=== PATIENT | female | born 1960 | race Caucasian/White ===

== ENCOUNTER 2023-07-17 12:27 | Observation (INO) | payer OTHER, SELFPAY ==
--- NOTE | ~2023-07-17 | CT_ITS ---
EXAMINATION: CT abdomen pelvis w con DATE: 07/17/2023 15:32 INDICATION: LUQ and LLQ abd pain TECHNIQUE: Computed tomography (CT) of the abdomen and pelvis was performed with 100 mL Omnipaque-350 intravenous contrast. Automated exposure control and iterative reconstruction technique were employe d. The dose-length product was 1176.67 mGy-cm. COMPARISON: None. FINDINGS: Lower thorax: Minimal basilar scarring/atelectasis and rounded atelectasis in the right lower lobe Liver: Normal. Biliary/Gallbladder: Gallbladder is normal. No bile duct dilation. Pancreas: No mass or duct dilation. Spleen: Normal. Adrenals:No mass. Kidneys: No suspicious mass, obstructing stone, or hydronephrosis. Subcentimeter hypodensities that l ikely represent cysts. GI tract: No small or large bowel dilation. Short segment mid sigmoid wall thickening with an inflame d diverticulum. Tiny foci of extracolonic gas in the adjacent pericolic fat. Somewhat triangular shap ed 1.5 cm fluid collection in the adjacent mesentery with the suggestion of early surrounding rim enh ancement. Normal appendix. Mesentery/Peritoneum: No ascites, mass, or free air. Retroperitoneum: No mass. Pelvis: Mild bladder wall edema. IUD, in good position. Soft Tissues: Soft tissues and body wall unremarkable. Bones: No acute osseous finding. IMPRESSION: Acute mid sigmoid diverticulitis with findings concerning for contained microperforation and a develo ping 1.5 cm pericolonic abscess. IUD, in good position, but unexpected for a patient of this age. Reviewed, dictated and finalized at location K. IMPRESSION: Acute mid sigmoid diverticulitis with findings concerning for contained micrope rforation and a developing 1.5 cm pericolonic abscess. IUD, in good position, but unexpected for a patient of this age.
[2023-07-17 12:42] VITALS: BP 181/62; PULSE 96; RESP 20; TEMP 36.6; O2SAT 99
[2023-07-17 13:26] LABS: Basophils Percent Auto 0.9 % (0.2-1.2); Eosinophils Absolute Auto 0.1 K/mm3 (0-0.3); Eosinophils Percent Auto 2.8 % (0-4.4); Hematocrit 41.9 % (37.0-47.0); Hemoglobin 12.9 g/dL (12.0-15.0); Immature Granulocyte Absolute 0.01 K/mm3 (0.00-0.031); Immature Granulocyte Percent A 0.2 % (0-0.5); Lymphocytes Percent Auto 30.5 % (18.3-44.2); Mean Corpuscular HGB Conc 30.8 g/dl (32-36); Mean Corpuscular Hemoglobin 25.4 pg (26-34); Mean Corpuscular Volume 82.6 fl (80-100); Mean Platelet Volume 10.8 fl (7.4-10.4); Monocytes Absolute Auto 0.5 K/mm3 (0.1-0.6); Monocytes Percent Auto 10.7 % (2.6-8.5); Neutrophils Absolute Auto 2.5 K/mm3 (1.3-6.7); Neutrophils Percent Auto 54.9 % (45.5-73.1); Platelet Count Result 247 k/mm3 (150-375); Red Blood Count 5.07 M/mm3 (4.2-5.4); Red Cell Distribution Width 13.7 % (11.5-14.5); White Blood Count 4.6 K/mm3 (4.5-10.0)
[2023-07-17 13:36] LABS: Alanine Aminotransferase 16 U/L (6-35); Albumin Level 4.2 g/dL (3.5-5.1); Alkaline Phosphatase 71 U/L (38-126); Anion Gap 5 mmol/L (8-16); Aspartate Amino Transferase 21 U/L (14-36); Bilirubin,Total 0.5 mg/dL (0.2-1.3); Blood Urea Nitrogen 14 mg/dL (7-17); Calcium 9.9 mg/dL (8.4-10.2); Carbon Dioxide 24 mmol/L (22-30); Chloride 108 mmol/L (98-107); Estimated CRCL calculation 88 ml/min; Estimated Glomerular Filt Rate > 60; Glucose 99 mg/dL (65-110); Lipase 134 U/L (23-300); Potassium 4.1 mmol/L (3.4-5.0); Sodium 137 mmol/L (137-145)
--- NOTE | 2023-07-17 14:46 | ED.ABDPAIN ---
HPI - Abdominal Pain General Chief Complaint: Abdominal Pain <Olga Eller PA-C - Last Filed: 07/17/23 17:19> Stated Complaint: ABD Pain <PATRICIA Tate Last Filed: 07/17/23 17:19> Time Seen by Provider: 07/17/23 14:39 <Olga Eller PA-C - Last Filed: 07/17/23 17:19> History of Present Illness HPI narrative: 63-year-old female with a reported history of diverticulitis and s/p tubal ligation in 1993 presents for evaluation for abdominal pain x5 days. Patient states that the onset of symptoms she had multiple episodes of watery diarrhea for 2 days. Her last bowel movement was 3 days ago which is abnormal for her. States since yesterday she has not been able to pass gas. Reports she is concerned that she has either constipated or has a bowel obstruction. She reports nausea, denies vomiting, melena or hematochezia, fever, chest pain or shortness of breath, dysuria or hematuria. Denies prior history of bowel obstruction. <Olga Eller PA-C - Last Filed: 07/17/23 17:19> Related Data Allergies/Adverse Reactions: Allergies Allergy/AdvReac Type Severity Reaction Status Date / Time No Known Allergies Allergy Verified 07/17/23 15:00 <Olga Eller PA-C - Last Filed: 07/17/23 17:19> Review of Systems Review of Systems: CONSTITUTIONAL: Denies fever, chills, or sweats. EYES: Denies visual changes, redness, or discharge. ENT: Denies rhinorrhea, congestion, sore throat, or otalgia. CARDIOVASCULAR: Denies chest pain, palpitations, or edema. RESPIRATORY: Denies cough or dyspnea. GASTROINTESTINAL: See HPI GENITOURINARY: Denies dysuria or hematuria. SKIN: Denies rash or itching. MUSCULOSKELETAL: Denies back pain, joint pain, or myalgia. NEUROLOGIC: Denies headache, numbness, or weakness. PSYCHIATRIC: Denies anxiety or depression. <PATRICIA Tate Last Filed: 07/17/23 17:19> Exam Narrative: GENERAL: Well-appearing, well-nourished, and in no acute distress. HEAD: Normocephalic, atraumatic. EYES: PERRLA and EOMI. ENT: Nares clear, no rhinorrhea or epistaxis. Mucous membranes moist. NECK: Supple. CHEST: Clear to auscultation. No respiratory distress. HEART: Regular rate and rhythm. No murmur heard. Normal peripheral pulses. ABDOMEN: Hypoactive bowel sounds. Abdomen soft with tenderness and guarding the left lower quadrant and left upper quadrant. No rebound or rigidity. Negative Alanis's and McBurney's. No CVA tenderness. EXTREMITIES: Normal range of motion. No edema. SKIN: Warm, dry, no rash. NEURO: No focal deficits. Alert and oriented x3 <Olga Eller PA-C - Last Filed: 07/17/23 17:19> Course BUDGET ENGINEER/PA Physician Supervision This visit was performed by both a physician and an APC. I performed all aspects of the MDM as documented. <Bandar Barajas MD - Last Filed: 07/17/23 18:22> Vital Signs Vital signs: Vital Signs Temperature 97.8 F 07/17/23 12:42 Pulse Rate 96 07/17/23 12:42 Respiratory Rate 20 07/17/23 12:42 Blood Pressure 181/62 H 07/17/23 12:42 Pulse Oximetry 99 07/17/23 12:42 Oxygen Delivery Room Air 07/17/23 12:42 Temperature 97.4 F L 07/17/23 18:05 Pulse Rate 84 07/17/23 18:05 Respiratory Rate 16 07/17/23 18:05 Blood Pressure 134/65 07/17/23 18:05 Pulse Oximetry 97 07/17/23 18:05 Oxygen Delivery Room Air 07/17/23 12:42 <Olga Eller PA-C - Last Filed: 07/17/23 17:19> Vital Signs Temperature 97.8 F 07/17/23 12:42 Pulse Rate 96 07/17/23 12:42 Respiratory Rate 20 07/17/23 12:42 Blood Pressure 181/62 H 07/17/23 12:42 Pulse Oximetry 99 07/17/23 12:42 Oxygen Delivery Room Air 07/17/23 12:42 Temperature 97.4 F L 07/17/23 18:05 Pulse Rate 84 07/17/23 18:05 Respiratory Rate 16 07/17/23 18:05 Blood Pressure 134/65 07/17/23 18:05 Pulse Oximetry 97 07/17/23 18:05 Oxygen Delivery Room Air 07/17/23 12:42 <Bandar Barajas MD
[2023-07-17] MEDS: SODIUM CHLORIDE 0.9% IV 1,000 ML 999 ML IV CONT (15:00)
[2023-07-17] MEDS: ONDANSETRON INJ 4 MG/2 ML VIAL IV PUSH ×2 (15:00→20:29)
[2023-07-17] MEDS: MORPHINE SULFATE (*CRX) 4 MG/ML INJ IV PUSH ×2 (15:00→20:29)
[2023-07-17 16:19] LABS: Lactic Acid Reflex 0.9 mmol/L (0.7-2.0)
[2023-07-17 16:43] LABS: Appearance Urine Clear (Clear); Bilirubin Urine Negative (Negative); Blood Urine Negative (Negative); Color Urine Yellow (Yellow); Glucose Urine UA Negative (Negative); Ketones Urine Negative (Negative); Leukocyte Esterase Ur Negative LEU/UL (Negative); Nitrate Urine Negative (Negative); Protein Urine Negative (Negative)
[2023-07-17 17:01] LABS: Add Urine Microscopic? NO; Specific Grav Ur 1.059 (1.001-1.035)
[2023-07-17 17:47] VITALS: BP 119/49; PULSE 78; RESP 16; TEMP 36.6; O2SAT 98
[2023-07-17] MEDS: PIPERACILLN/TAZ 3.375GM/NS50ML 3.375 GM/50 ML BAG IVPB ×2 (17:48→23:15)
[2023-07-17 18:05] VITALS: BP 134/65; PULSE 84; RESP 16; TEMP 36.3; O2SAT 97
--- NOTE | 2023-07-17 18:05 | PC.NURSE ---
This patient, Osiris Fontenot, was admitted to [facility] Surg Room 326-01. Patient/family oriented to hospital policies and general routines including ID bracelet, bed and alarms, visiting hours, pain management, procedures, bathroom and other care routines, personal items, smoking policy, room service/diet, and visiting hours. Information on how to activate the Rapid Response Team has been discussed. Patient/Family are encouraged to report perceived risks to care and to ask questions if they do not understand what they are told or what they should do.
[2023-07-17 18:35] VITALS: BMI 35.6
--- NOTE | 2023-07-17 19:30 | PM.IMHP ---
H&P: HPI History of Present Illness Date/Time: 07/17/23 19:30 Chief Complaint: Abdominal Pain, Diarrhea Narrative: 63 y/o F presents here with with lower abdominal pain and diarrhea with PMH of diverticulitis and surgical history of tubal ligation 1993. Patient presents here for evaluation of lower abdominal pain that is been ongoing for the past 5 days. Patient describes the abdominal pain as sharp, constant, non-radiating, and currently 0/10. At the onset of her abdominal pain she had watery stools for approximately 2 days, then did not have a bowel movement for the last 3 days. States this is abnormal for her, typically goes once daily. Reports that she was passing gas this morning, no longer passing gas this evening. Currently nauseated without vomiting. Endorsing urinary frequency without dysuria and abdominal bloating. Denies fever, chills, or body aches. No previous history of bowel obstructions, does have history of diverticulitis with collapsed episode in 2016. Continuing to have abdominal discomfort primarily on the left in the lower quadrant, now radiating somewhat upwards into the left upper quadrant. Initial VS at presentation: 97.8 ? F, HR 96, RR 20, 181/62, 99% on RA. ED workup showed: No leukocytosis or anemia, creatinine 0.7, no significant electrolyte derangements, and UA unremarkable. CT of the abdomen pelvis shows acute mid sigmoid diverticulitis. Review of Systems Review of Systems: All systems reviewed & are unremarkable except as noted in HPI and below [facility] Past Medical History Medical History (Updated 07/17/23 @ 23:23 by Lesly Doty APRN) Diverticulitis Diverticulosis Hypertension Family History Family History Mother Hypertension Social History Social History Smoking status: Former smoker Smoking end date: 05/03/13 Alcohol intake: never Substance use: never Do You Feel Safe in your Home?: Yes Lack of Transportation: No Lack of Food: Never True Current Housing: I Have Housing Concerned About Future Housing: No Difficulty Paying Gas/Electric Bills: No Difficulty Paying for Meds: No Currently Unemployed: No Education: Master's Degree or Higher Difficulty w/ Childcare or Family Care: No Spiritual care concerns: No Meds Home Medications and Allergies Home Medications Medication Instructions Recorded Confirmed Type lisinopril 20 mg tablet 20 mg PO DAILY 07/17/23 07/17/23 History Allergies Allergy/AdvReac Type Severity Reaction Status Date / Time No Known Allergies Allergy Verified 07/17/23 15:00 Vital Signs Vital Signs - 24 hr 07/17/23 12:42 07/17/23 17:47 07/17/23 18:41 Temperature 97.8 F 97.8 F Pulse Rate 96 78 Respiratory Rate 20 16 Blood Pressure 181/62 H 119/49 L Pulse Oximetry 99 98 Oxygen Delivery Room Air Room Air 07/17/23 18:05 Temperature 97.4 F L Pulse Rate 84 Respiratory Rate 16 Blood Pressure 134/65 Pulse Oximetry 97 Oxygen Delivery Exam Const: General: comfortable and no acute distress Other: , female, nontoxic appearance HENMT: Face/Nose/Sinus: Normal nares present Mouth: Yes moist mucous membranes Eyes: General: appearance normal, both eyes and all related structures Sclera: sclerae normal Pupils: Equal, round and reactive pupils present EOM: EOMs intact bilaterally Resp: Effort & Inspection: normal respiratory effort Auscultation: clear to auscultation bilaterally Cardio: Rate: regular rate Rhythm: regular rhythm Other: S1-S2 present without murmur, rub, ectopy GI: Other: diffusely tender on the L, more so in LLQ. BS normo to hypoactive throughout. Nondistended, soft. Skin: General skin exam: normal color and no rashes or lesions noted Wounds: no wounds Neuro: Speech: normal speech Motor exam (neuro): 5/5 motor strength present th
[2023-07-17 21:03] VITALS: BP 109/70; PULSE 80; RESP 18; TEMP 36.4; O2SAT 96
[2023-07-17] MEDS: LACTATED RINGERS 1,000 ML 100 ML IV CONT (22:51)
[2023-07-18 04:37] VITALS: BP 110/58; PULSE 61; RESP 18; TEMP 36.5; O2SAT 97
[2023-07-18] MEDS: PIPERACILLN/TAZ 3.375GM/NS50ML 3.375 GM/50 ML BAG IVPB ×4 (05:06→23:16)
--- NOTE | 2023-07-18 07:45 | PM.CNGS ---
Assessment and Plan Assessment and plan (1) Abscess of sigmoid colon due to diverticulitis: Code(s): K57.20 - Diverticulitis of large intestine with perforation and abscess without bleeding Status: Acute Assessment and Plan: exam benign, will advance to low fiber diet as tolerated, cont abx, cont serial exams, labs, encourage OOB History of Present Illness Consult details Consult date: 07/18/23 Reason for consult: abdominal pain Requesting physician: Chidi Mistry MD Narrative: The pt is a 63 y/o F presenting to the ED c/o lower abd pain over last 5-6 days. Pt reports intially c watery diarrhea now switched over to constipation. Pt reports pain is constant, sharp and localized to LLQ. Pt reports some mild nausea and poor appetite, but denies f/c, emesis. Pt reports similar episode in the past associated c diverticulitis. Review of Systems Review of Systems: All systems reviewed & are unremarkable except as noted in HPI and below PMFSH Past Medical History Medical History Diverticulitis Diverticulosis Hypertension Family History Family History Mother Hypertension Social History Social History Smoking status: Former smoker Smoking end date: 05/03/13 Alcohol intake: never Substance use: never Do You Feel Safe in your Home?: Yes Lack of Transportation: No Lack of Food: Never True Current Housing: I Have Housing Concerned About Future Housing: No Difficulty Paying Gas/Electric Bills: No Difficulty Paying for Meds: No Currently Unemployed: No Education: Master's Degree or Higher Difficulty w/ Childcare or Family Care: No Spiritual care concerns: No Meds Home Medications and Allergies Home Medications Medication Instructions Recorded Confirmed Type lisinopril 20 mg tablet 20 mg PO DAILY 07/17/23 07/17/23 History Allergies Allergy/AdvReac Type Severity Reaction Status Date / Time No Known Allergies Allergy Verified 07/17/23 15:00 Vital Signs Vital Signs - 24 hr 07/17/23 12:42 07/17/23 17:47 07/17/23 18:41 Temperature 36.6 C 36.6 C Pulse Rate 96 78 Respiratory Rate 20 16 Blood Pressure 181/62 H 119/49 L Pulse Oximetry 99 98 Oxygen Delivery Room Air Room Air 07/17/23 18:05 07/17/23 21:03 07/18/23 04:37 Temperature 36.3 C L 36.4 C L 36.5 C Pulse Rate 84 80 61 Respiratory Rate 16 18 18 Blood Pressure 134/65 109/70 110/58 L Pulse Oximetry 97 96 97 Oxygen Delivery Exam Const: General: cooperative, comfortable and no acute distress HENMT: Head: normal to inspection, normocephalic and atraumatic Eyes: General: appearance normal, both eyes and all related structures Neck: Neck: normal visual inspection, full ROM and no lymphadenopathy Resp: Auscultation: clear to auscultation bilaterally Cardio: Rate: regular rate Rhythm: regular rhythm GI: Inspection: normal to inspection and distended GI Palp: Yes abdominal tenderness, Yes Soft to palpation, Yes Tenderness to palpation present (GI), No Guarding due to palpation present (GI), No Rigid due to palpation and No Hernia present Skin: General skin exam: normal color and no rashes or lesions noted Neuro: General: patient oriented x3 and CN's II-XI intact bilaterally Extrem: General: normal to inspection and full ROM Psych: Appearance: grossly normal Results Labs 07/17/23 13:19 07/17/23 13:19 Labs: Abnormal lab results 07/17/23 07/17/23 Range/Units 13:19 16:33 MCH 25.4 L (26-34) pg MCHC 30.8 L (32-36) g/dl MPV 10.8 H (7.4-10.4) fl [place] % (Auto) 10.7 H (2.6-8.5) % Chloride 108 H (98-107) mmol/L Anion Gap 5 L (8-16) mmol/L Ur Specific [place] 1.059 H (1.001-1.035) Diabetes panel 07/17/23 Range/Units 13:19 Sodium 137 (137-145)
[2023-07-18] MEDS: lisinopriL 20 MG TABLET PO (08:18)
[2023-07-18] MEDS: PANTOPRAZOLE SODIUM IV 40 MG VIAL IV PUSH (08:18)
[2023-07-18] MEDS: LACTATED RINGERS 1,000 ML 100 ML IV CONT (08:18)
[2023-07-18 08:27] LABS: Hemoglobin 11.7 g/dL (12.0-15.0); Mean Corpuscular HGB Conc 30.8 g/dl (32-36); Mean Corpuscular Hemoglobin 26.1 pg (26-34); Mean Corpuscular Volume 84.8 fl (80-100); Mean Platelet Volume 10.7 fl (7.4-10.4); Platelet Count Result 227 k/mm3 (150-375); Red Blood Count 4.48 M/mm3 (4.2-5.4); Red Cell Distribution Width 13.8 % (11.5-14.5); White Blood Count 3.5 K/mm3 (4.5-10.0)
[2023-07-18 08:42] LABS: Anion Gap 4 mmol/L (8-16); Blood Urea Nitrogen 10 mg/dL (7-17); Calcium 9.4 mg/dL (8.4-10.2); Carbon Dioxide 27 mmol/L (22-30); Chloride 106 mmol/L (98-107); Estimated CRCL calculation 78 ml/min; Estimated Glomerular Filt Rate > 60; Glucose 123 mg/dL (65-110); Sodium 137 mmol/L (137-145)
--- NOTE | 2023-07-18 13:50 | PM.IMPN ---
Progress Note: A&P Assessment and Plan (1) Diverticulitis of large intestine with complication: Code(s): K57.32 - Diverticulitis of large intestine without perforation or abscess without bleeding Status: Acute Assessment and Plan: CT abd/pelvis acute mid sigmoid diverticulitis with findings concerning for contained microperforation and a developing 1.5 cm pericolonic abscess. IUD, in good position, but unexpected for a patient of this age. Started on Zosyn Q6H on 07/16 continue IV hydration, given 1 L bolus of NS in the ED. continue as 100 mL/hr of LR. Assess daily for discontinuation. General Surgery consulted serial abdominal exams tyl prn for fever or pain pain medication PRN antiemetics PRN Advance diet as tolerated (2) Hypertension: Code(s): I10 - Essential (primary) hypertension Status: Acute Assessment and Plan: chronic, currently 109/70 continue home medications: Lisinopril 20 mg p.o. daily monitor Subjective Date/time seen: 07/18/23 13:50 Interval history: Patient doing well today. She continues to have some lower abdominal discomfort and some mild nausea. She has still not had a bowel movement. States that her last normal bowel movement was 6 days ago. She did have some diarrhea intermittently between then. Discussed that we will hold off on stimulating her bowels for now until her symptoms improve. Will advanced diet as tolerated. Exam Narrative: GENERAL: Comfortable, no acute distress HENMT: moist mucous membranes EYES: EOM intact b/l NECK: no lymphadenopathy RESPIRATORY: clear to auscultation CARDIO: RRR GI: soft, Mild left lower quadrant tenderness, bowel sounds present SKIN: no rashes EXTREMITIES: no edema, redness or tenderness Objective Data Vital Signs Vital Signs: Vital Signs - 24 hr 07/17/23 17:47 07/17/23 18:41 07/17/23 18:05 Temperature 97.8 F 97.4 F L Pulse Rate 78 84 Respiratory Rate 16 16 Blood Pressure 119/49 L 134/65 Pulse Oximetry 98 97 Oxygen Delivery Room Air 07/17/23 21:03 07/18/23 04:37 07/18/23 08:00 Temperature 97.5 F L 97.7 F Pulse Rate 80 61 Respiratory Rate 18 18 Blood Pressure 109/70 110/58 L Pulse Oximetry 96 97 Oxygen Delivery Room Air Intake/Output Intake/Output: Intake & Output 03/14/24 03/15/24 03/16/24 03/17/24 23:59 23:59 23:59 23:59 Intake Total 1050 2225 Balance 1050 2225 Meds/Results Medications: Active Medications Generic Name Dose Route Start Last Admin Trade Name Freq PRN Reason Stop Dose Admin Acetaminophen 650 mg 07/17/23 21:49 Acetaminophen 325 Mg Tablet PO Q4H PRN Mild Pain (1-3) or Fever Piperacillin/Tazobactam/Dextrose 3.375 gm in 50 mls @ 100 mls/hr 07/18/23 00:00 07/18/23 11:59 Zosyn 3.375 Gm/Ns 50 Ml IVPB Infused Q6H SHAMIKA Infusion Lactated Ringer's 1,000 mls @ 100 mls/hr 07/17/23 21:45 07/18/23 08:18 Lr - Lactated Ringers Iv IV CONT 100 mls/hr .Q10H SHAMIKA Administration Lisinopril 20 mg 07/18/23 09:00 07/18/23 08:18 Lisinopril 20 Mg Tablet PO 20 mg DAILY SHAMIKA Administration Morphine Sulfate 4 mg 07/17/23 17:17 07/17/23 20:29 Morphine Sulfate (*Crx) 4 Mg/Ml Inj IV PUSH 4 mg Q2H PRN Administration Pain Rated 7-10 Ondansetron HCl 4 mg 07/17/23 17:17 07/17/23 20:29 Ondansetron Inj 4 Mg/2 Ml Vial IV PUSH 4 mg Q4H PRN Administration Nausea Pantoprazole Sodium 40 mg 07/18/23 09:00 07/18/23 08:18 Pantoprazole Sodium Iv 40 Mg Vial IV PUSH 40 mg QAM SHAMIKA Administration Radiology Results: ITS Impressions Abdomen/Pelvis CT 07/17/23 15:42 IMPRESSION: Acute mid sigmoid diverticulitis with findings concerning for contained microperforation and a developing 1.5 cm pericolonic abscess. IUD, in good position, but unexpected for a patient of this age. Labs Labs: Laboratory Results - last 24 hr 07/17/23 07/17/23 07/18/23
[2023-07-18 14:00] VITALS: BP 102/55; PULSE 74; RESP 14; TEMP 36.4; O2SAT 96
[2023-07-18 20:59] VITALS: BP 125/62; PULSE 74; RESP 16; TEMP 36.3; O2SAT 97
[2023-07-18] MEDS: MORPHINE SULFATE (*CRX) 4 MG/ML INJ IV PUSH (23:19)
[2023-07-18] MEDS: ONDANSETRON INJ 4 MG/2 ML VIAL IV PUSH (23:19)
[2023-07-19] MEDS: PIPERACILLN/TAZ 3.375GM/NS50ML 3.375 GM/50 ML BAG IVPB ×3 (05:20→18:17)
[2023-07-19] MEDS: ONDANSETRON INJ 4 MG/2 ML VIAL IV PUSH (05:25)
[2023-07-19] MEDS: MORPHINE SULFATE (*CRX) 4 MG/ML INJ IV PUSH (05:25)
[2023-07-19 05:42] VITALS: BP 116/58; PULSE 72; RESP 16; TEMP 36.2; O2SAT 96
[2023-07-19] MEDS: lisinopriL 20 MG TABLET PO (08:40)
[2023-07-19] MEDS: PANTOPRAZOLE SODIUM IV 40 MG VIAL IV PUSH (08:40)
[2023-07-19 10:50] LABS: Hematocrit 37.1 % (37.0-47.0); Hemoglobin 11.4 g/dL (12.0-15.0); Mean Corpuscular HGB Conc 30.7 g/dl (32-36); Mean Corpuscular Volume 84.7 fl (80-100); Mean Platelet Volume 10.9 fl (7.4-10.4); Platelet Count Result 223 k/mm3 (150-375); Red Blood Count 4.38 M/mm3 (4.2-5.4); Red Cell Distribution Width 13.6 % (11.5-14.5); White Blood Count 3.6 K/mm3 (4.5-10.0)
[2023-07-19 10:57] LABS: Anion Gap 2 mmol/L (8-16); Blood Urea Nitrogen 9 mg/dL (7-17); Calcium 9.3 mg/dL (8.4-10.2); Carbon Dioxide 30 mmol/L (22-30); Chloride 106 mmol/L (98-107); Estimated CRCL calculation 78 ml/min; Estimated Glomerular Filt Rate > 60; Glucose 111 mg/dL (65-110); Potassium 3.9 mmol/L (3.4-5.0); Sodium 138 mmol/L (137-145)
--- NOTE | 2023-07-19 11:39 | PM.PNGS ---
Progress Note: A&P Assessment and Plan (1) Abscess of sigmoid colon due to diverticulitis: Code(s): K57.20 - Diverticulitis of large intestine with perforation and abscess without bleeding <JESSIKA Riley - Last Filed: 07/19/23 11:54> Status: Acute <JESSIKA Riley - Last Filed: 07/19/23 11:54> Assessment and Plan: Clinically improving. She had some RLQ pain this morning, but this improved. Will switch to oral analgesics and add Ibuprofen. Continue IV antibiotics. Encouraged walking the halls. Hopefully she can discharge home tomorrow on oral antibiotics if she continues to improve. <JESSIKA Riley - Last Filed: 07/19/23 11:54> Assessment and Plan: I have discussed the patient's case and plan of care with Dr. Goins. <JESSIKA Riley - Last Filed: 07/19/23 11:54> Subjective Subjective Date/Time Seen: 07/19/23 11:39 <JESSIKA Riley - Last Filed: 07/19/23 11:54> Patient reports: flatus, no bowel movement and afebrile <JESSIKA Riley - Last Filed: 07/19/23 11:54> Interval history: This is a 63 year old woman who presented with abdominal pain and workup showed CT evidence of sigmoid diverticulitis with contained microperforation and a small 1.5 cm pericolonic abscess. Chart reviewed. She reports her overall abdominal pain improved significantly yesterday. This was initially LLQ pain and today she began to notice more RLQ abdominal pain and did require IV morphine this morning around 5 am. She is tolerating a low fiber diet. No nausea or vomiting. She feels constipated. She had her last formed BM a week ago and then had some diarrhea last Wednesday. She reports having a small mucousy BM yesterday, but none today. No other complaints at this time. <JESSIKA Riley - Last Filed: 07/19/23 11:54> Exam Const: General: comfortable and no acute distress <JESSIKA Riley - Last Filed: 07/19/23 11:54> Orientation/consciousness: patient oriented x3 <Ashley Gill SharleneJESSIKA titus - Last Filed: 07/19/23 11:54> GI: Inspection: non-distended and obesity <Ashley Gill SharleneJESSIKA titus - Last Filed: 07/19/23 11:54> GI Palp: Yes Soft to palpation, Yes Tenderness to palpation present (GI) (very mild LLQ), No Guarding due to palpation present (GI) and No Rebound tenderness present <JESSIKA Riley - Last Filed: 07/19/23 11:54> Auscultation: normal bowel sounds <JESSIKA Riley - Last Filed: 07/19/23 11:54> Objective Data Vital Signs Vital Signs: Vital Signs - 24 hr 07/18/23 14:00 07/18/23 20:59 07/19/23 05:42 Temperature 97.6 F 97.3 F L 97.2 F L Pulse Rate 74 74 72 Respiratory Rate 14 16 16 Blood Pressure 102/55 L 125/62 116/58 L Pulse Oximetry 96 97 96 Oxygen Delivery 07/19/23 08:00 Temperature Pulse Rate Respiratory Rate Blood Pressure Pulse Oximetry Oxygen Delivery Room Air <JESSIKA Riley - Last Filed: 07/19/23 11:54> Intake/Output Intake/Output: Intake & Output 07/16/23 07/17/23 07/18/23 07/19/23 23:59 23:59 23:59 23:59 Intake Total 1050 3115 490 Balance 1050 3115 490 <JESSIKA Riley - Last Filed: 07/19/23 11:54> Meds/Results Medications: Active Medications Generic Name Dose Route Start Last Admin Trade Name Freq PRN Reason Stop Dose Admin Acetaminophen 650 mg 07/17/23 21:49 Acetaminophen 325 Mg Tablet PO Q4H PRN Mild Pain (1-3) or Fever Piperacillin/Tazobactam/Dextrose 3.375 gm in 50 mls @ 100 mls/hr 07/18/23 00:00 07/19/23 05:20 Zosyn 3.375 Gm/Ns 50 Ml IVPB 100 mls/hr Q6H SHAMIKA Administration Lisinopril 20 mg 07/18/23 09:00 07/19/23 08:40 Lisinopril 20 Mg Tablet PO 20 mg DAILY SHAMIKA Administration Morphine Sulfate 4 mg 07/17/23 17:17 07/19/23 05:25 Morphine Sulfate (*Crx) 4 Mg/Ml Inj IV PUSH 4 mg Q2H PRN Administration Pain Rated 7-10 Ondansetron HCl 4 mg 07/17/23 17:17 07/19/23 05:25 Ondansetron Inj 4 Mg/2 Ml
[2023-07-19] MEDS: polyethylene glycoL 3350 17 GM POWD.PACK PO ×2 (12:50→18:17)
[2023-07-19 13:54] VITALS: BP 132/62; PULSE 73; RESP 16; TEMP 36.1; O2SAT 97
--- NOTE | 2023-07-19 14:57 | PM.IMPN ---
Progress Note: A&P Assessment and Plan (1) Diverticulitis of large intestine with complication: Code(s): K57.32 - Diverticulitis of large intestine without perforation or abscess without bleeding Status: Acute Assessment and Plan: CT abd/pelvis acute mid sigmoid diverticulitis with findings concerning for contained microperforation and a developing 1.5 cm pericolonic abscess. IUD, in good position, but unexpected for a patient of this age. Started on Zosyn Q6H on 07/16 --> 07/18 transitioned to PO Augmentin IV fluids discontinued. General Surgery consulted serial abdominal exams tyl prn for fever or pain pain medication PRN antiemetics PRN Pt tolerating diet. (2) Constipation: Code(s): K59.00 - Constipation, unspecified Status: Acute Assessment and Plan: Patient has not had bowel movement in 1 week. Acute diverticulitis has improved. Due to this improvement will add MiraLax scheduled and p.r.n. Dulcolax. Once patient has had bowel movement will plan on discharge. (3) Hypertension: Code(s): I10 - Essential (primary) hypertension Status: Acute Assessment and Plan: chronic, currently 109/70 continue home medications: Lisinopril 20 mg p.o. daily monitor Subjective Date/time seen: 07/19/23 14:57 Interval history: Patient has not had a bowel movement in over 1 week. General surgery has discharge patient from their service. Due to patient's constipation will start her on some MiraLax scheduled and Dulcolax as needed. Once patient's bowel movement she will be discharged. Her abdominal comfort is still present but improved. She has no pain with eating. She is passing gas. Mild nausea but no vomiting. Exam Narrative: GENERAL: Comfortable, no acute distress HENMT: moist mucous membranes EYES: EOM intact b/l NECK: no lymphadenopathy RESPIRATORY: clear to auscultation CARDIO: RRR GI: soft, Mild left lower quadrant tenderness, bowel sounds present SKIN: no rashes EXTREMITIES: no edema, redness or tenderness Objective Data Vital Signs Vital Signs: Vital Signs - 24 hr 07/18/23 20:59 07/19/23 05:42 07/19/23 08:00 Temperature 97.3 F L 97.2 F L Pulse Rate 74 72 Respiratory Rate 16 16 Blood Pressure 125/62 116/58 L Pulse Oximetry 97 96 Oxygen Delivery Room Air 07/19/23 13:54 Temperature 97.0 F L Pulse Rate 73 Respiratory Rate 16 Blood Pressure 132/62 Pulse Oximetry 97 Oxygen Delivery Intake/Output Intake/Output: Intake & Output 07/16/23 07/17/23 07/18/23 07/19/23 23:59 23:59 23:59 23:59 Intake Total 1050 3115 780 Balance 1050 3115 780 Meds/Results Medications: Active Medications Generic Name Dose Route Start Last Admin Trade Name Freq PRN Reason Stop Dose Admin Acetaminophen 650 mg 07/17/23 21:49 Acetaminophen 325 Mg Tablet PO Q4H PRN Mild Pain (1-3) or Fever Hydrocodone Bitart/Acetaminophen 1 tab 07/19/23 11:39 Hydrocodone/Acetaminophen (*Crx) 5-325 Mg Tablet PO Q6H PRN Pain Rated 7-10 Piperacillin/Tazobactam/Dextrose 3.375 gm in 50 mls @ 100 mls/hr 07/18/23 00:00 07/19/23 12:50 Zosyn 3.375 Gm/Ns 50 Ml IVPB 100 mls/hr Q6H SHAMIKA Administration Ibuprofen 400 mg/ Sodium 104 mls @ 208 mls/hr 07/19/23 11:39 Chloride IVPB Q6H PRN Pain Rated 4-6 Lisinopril 20 mg 07/18/23 09:00 07/19/23 08:40 Lisinopril 20 Mg Tablet PO 20 mg DAILY SHAMIKA Administration Morphine Sulfate 4 mg 07/17/23 17:17 07/19/23 05:25 Morphine Sulfate (*Crx) 4 Mg/Ml Inj IV PUSH 4 mg Q2H PRN Administration Pain Rated 7-10 Ondansetron HCl 4 mg 07/17/23 17:17 07/19/23 05:25 Ondansetron Inj 4 Mg/2 Ml Vial IV PUSH 4 mg Q4H PRN Administration Nausea Pantoprazole Sodium 40 mg 07/18/23 09:00 07/19/23 08:40 Pantoprazole Sodium Iv 40 Mg Vial IV PUSH 40 mg QAM SHAMIKA Administration Polyethylene Glycol 17 gm
[2023-07-19 22:00] VITALS: BP 117/56; PULSE 73; RESP 16; TEMP 36.9; O2SAT 95
[2023-07-20 06:00] VITALS: BP 117/49; PULSE 70; RESP 18; TEMP 36.1; O2SAT 96
[2023-07-20 06:41] LABS: Hematocrit 38.6 % (37.0-47.0); Hemoglobin 11.5 g/dL (12.0-15.0); Mean Corpuscular HGB Conc 29.8 g/dl (32-36); Mean Corpuscular Hemoglobin 25.6 pg (26-34); Mean Platelet Volume 10.8 fl (7.4-10.4); Platelet Count Result 225 k/mm3 (150-375); Red Blood Count 4.49 M/mm3 (4.2-5.4); Red Cell Distribution Width 13.4 % (11.5-14.5)
[2023-07-20 06:54] LABS: Anion Gap 2 mmol/L (8-16); Blood Urea Nitrogen 11 mg/dL (7-17); Calcium 9.3 mg/dL (8.4-10.2); Carbon Dioxide 31 mmol/L (22-30); Chloride 109 mmol/L (98-107); Estimated CRCL calculation 78 ml/min; Estimated Glomerular Filt Rate > 60; Glucose 103 mg/dL (65-110); Potassium 4.2 mmol/L (3.4-5.0); Sodium 142 mmol/L (137-145)
[2023-07-20 08:25] VITALS: BP 144/58; PULSE 70; RESP 16; TEMP 36.6; O2SAT 98
[2023-07-20] MEDS: lisinopriL 20 MG TABLET PO (08:29)
[2023-07-20] MEDS: PANTOPRAZOLE SODIUM IV 40 MG VIAL IV PUSH (08:29)
[2023-07-20] MEDS: AMOXICILLIN/CLAVULANATE K 875-125 MG TAB 1 TABLET PO (08:29)
--- NOTE | 2023-07-20 11:41 | PM.DS ---
DS: Admitting Diagnosis Discharge Date 07/20/23 Admitting Diagnosis diverticulitis DS: Discharge Diagnosis Discharge Diagnosis (1) Diverticulitis of large intestine with complication: Code(s): K57.32 - Diverticulitis of large intestine without perforation or abscess without bleeding Status: Acute (2) Constipation: Code(s): K59.00 - Constipation, unspecified Status: Acute (3) Hypertension: Code(s): I10 - Essential (primary) hypertension Status: Acute DS: Summary Hospital Course Hospital Course: This is a 63-year-old female who presented to the ED due to abdominal pain and diarrhea. She has a past medical history of hypertension. She had ongoing lower abdominal pain for approximately 5 days prior to presentation. CT abdomen pelvis showing evidence of diverticulitis. She does have history of diverticulitis. No history of bowel obstructions. 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 ED workup showed:? No leukocytosis or anemia, creatinine 0.7, no significant electrolyte derangements, and UA unremarkable. General surgery consulted on their opinion for management of patient's diverticulitis. She was started on a liquid diet and IV Zosyn. Patient's symptoms improve with management. She was able to tolerate a low fiber diet and was pain free. Patient was able to have bowel movement on day of discharge. She was transition to p.o. antibiotics. Her labs and vital signs are stable and she is medically clear for discharge at this time. Time Spent with Patient Time attestation: Total time spent providing and/or coordinating discharge services: Exam Narrative: GENERAL: Comfortable, no acute distress HENMT: moist mucous membranes EYES: EOM intact b/l NECK: no lymphadenopathy RESPIRATORY: clear to auscultation CARDIO: RRR GI: soft, nontender, bowel sounds present SKIN: no rashes EXTREMITIES: no edema, redness or tenderness DS: Data Data Completed and Pending Labs on day of discharge: Labs from last 24 hours 07/20/23 06:12 WBC 3.0 L RBC 4.49 Hgb 11.5 L Hct 38.6 MCV 86.0 MCH 25.6 L MCHC 29.8 L RDW 13.4 Plt Count 225 MPV 10.8 H Sodium 142 Potassium 4.2 Chloride 109 H Carbon Dioxide 31 H Anion Gap 2 L BUN 11 Creatinine 0.80 Estim Creat Clear Calc 78 Estimated GFR > 60 Glucose 103 Calcium 9.3 Preliminary micro results at discharge 07/17/23 17:14 Blood Culture - Preliminary Blood 07/17/23 16:56 Blood Culture - Preliminary Blood Discharge Plan Discharge Consulting providers: María Goins Discharging Clinician: Shanika Black Patient Disposition: Home, Self-Care Activity: as tolerated Diet: low fiber Discharge Instructions: Medication: Augmentin twice daily. Will be completed on 07/24/23 in the morning. Next dose this evening. Diet: Low fiber diet for 2 weeks, then high fiber thereafter. Metamucil daily for fiber supplementation. example of low-fiber foods: Cream of wheat and finally ground grits, white bread, pasta and rice, well cooked fruit without skin or seeds, cow's milk, yogurt, cheese, eggs, poultry, ground beef, tofu and peanut butter example of high-fiber foods: Whole grains, dried fruit, fresh fruit with skin, raw vegetables, code green such as spinach, tough meet, the [place] such as wynne beans and lentils. Increase daily activity. Recommend workout/ activity at least 30 minutes daily. Stay hydrated with water and limit the amount of coffee and soda daily. Discharge disposition: Take medications as prescribed Monitor blood pressures Avoid social areas, you wear a mask when in social settings Encouraged to continue with yearly vaccinations Return to the emergency department if he developed sudden shortness of breath, chest pain, nausea, vomiting, upset stomach or intractable diarrhea Return to the emergency department if you develop fever greater than 100.4 Follow-up with the primary car
[2023-07-20] MEDS: polyethylene glycoL 3350 17 GM POWD.PACK PO (12:02)
== END 2023-07-20 12:12 | disposition home or self-care (01) ==
LOC: ANHED 17:16 → ANH3MEDSUR 07-19 11:55
PROVIDERS: Emergency Medicine; Internal Medicine Critical Care Medicine; Nurse Practitioner Family; Admitting Provider Internal Medicine; Emergency Provider Physician Assistant; PCP Family Medicine; Visit Provider Internal Medicine
DX: K57.20 Diverticulitis of large intestine with perforation and abscess without bleeding (principal); K59.00 Constipation, unspecified; I10 Essential (primary) hypertension; Z68.35 Body mass index [BMI] 35.0-35.9, adult; Z97.5 Presence of (intrauterine) contraceptive device; Z87.891 Personal history of nicotine dependence; Z79.899 Other long term (current) drug therapy
CPT/HCPCS: 36415; 74177; 80048; 80053; 83605; 83690; 85025; 85027; 87040; 96361; 96365; 96374; 96375; 96376; 99285; A9270; C9113; G0378; G0379; J2270; J2405; J2543; J7030; J7120; Q9967

== ENCOUNTER 2023-12-15 12:02 | Outpatient (CLI) | payer OTHER, SELFPAY ==
--- NOTE | ~2023-12-15 | XR_ITS ---
XR abdomen/kub 1V 12/15/2023 12:20 INDICATION: IUD placement TECHNIQUE: KUB COMPARISON: None FINDINGS: Bowel gas pattern is normal. There is an IUD in the pelvis. There is no evidence of free ai r, mass, organomegaly, ascites or obstruction. No abnormal calculi are seen. The bones appear intac t. There is osteoarthritis of the hips. IMPRESSION: 1: No acute abdominal abnormality identified. Reviewed, dictated and finalized at location B.
== END 2023-12-15 12:03 | disposition home or self-care (01) ==
LOC: ANHIMG 12:07
PROVIDERS: PCP Family Medicine; Visit Provider Nurse Practitioner Women's Health
DX: Z97.5 Presence of (intrauterine) contraceptive device (principal)
CPT/HCPCS: 74018

== ENCOUNTER 2024-06-07 11:06 | Emergency (ER) | payer OTHER, SELFPAY ==
[2024-06-07] VITALS (10 sets, daily range): BP systolic 133–162; BP diastolic 61–70; PULSE 75–93; RESP 14–28; TEMP 36.4–36.8; O2SAT 94–100
--- NOTE | ~2024-06-07 | XR_ITS ---
EXAMINATION: XR chest 2V 06/07/2024 12:44 INDICATION: Respiratory concern PROCEDURE: 2 view chest COMPARISON: No prior studies for comparison. FINDINGS: The lungs are clear. The cardiomediastinal silhouette is within normal limits. There are no pleural effusions. There is no pneumothorax suspected. IMPRESSION: 1: NO ACUTE CARDIOPULMONARY DISEASE. Reviewed, dictated and finalized at location B. MENTATIONIST
--- NOTE | ~2024-06-07 | CT_ITS ---
EXAMINATION: CT brain wo con DATE: 06/07/2024 12:31 INDICATION: Dizziness, lightheadedness and hypertension TECHNIQUE: Computed tomography (CT) of the head was performed without intravenous contrast. Sagittal and coronal reconstructions were performed. The mA was adjusted according to patient size. Iterative reconstruction technique was employed. The dose-length product was 681.00 mGy-cm. COMPARISON: None FINDINGS: No acute intracranial hemorrhage, acute infarction or abnormal extra axial fluid collection. Symmetri c prominence of the sulci consistent with mild age-appropriate diffuse cerebral volume loss. Ventricl es are normal and symmetric. No mass/mass effect. Changes of bilateral intraocular lens replacement. The orbits, paranasal sinuses and mastoid air cells are normal. IMPRESSION: 1. Normal aging brain. No acute intracranial process. Reviewed, dictated and finalized at location A. ROBE CONSULTANT
--- NOTE | ~2024-06-07 | XR_ITS ---
EXAMINATION: XR hip RT min 2V DATE: 06/07/2024 12:44 INDICATION: Right hip pain. Fall. TECHNIQUE: 2 views of right hip were obtained. COMPARISON: None. FINDINGS: Alignment is normal. No fracture. There is mild right hip osteoarthritis. IMPRESSION: 1. Mild right hip osteoarthritis. Reviewed, dictated and finalized at location A. T EQUIP MAINT ENG
--- NOTE | 2024-06-07 12:14 | ECG_ITS ---
Test Date: 2024-06-07 17:54:19 Measurements Intervals [place] Rate: 82 P: 48 DC: 148 QRS: 2 QRSD: 103 T: 19 QT: 350 QTc: 411 Interpretive Statements SINUS RHYTHM BASELINE ARTIFACT- I, II, AVR, AVL, AVF, V1 NORMAL ECG No previous ECG available for comparison Electronically Signed On 06-07-2024 18:00:18 TILE PICKER by Chay Wilde D.O.
--- NOTE | 2024-06-07 12:20 | ED_ITS ---
HPI - Dizziness General Chief Complaint: Recheck/Abnormal Lab/Rx Stated Complaint: HTN Time Seen by Provider: 06/07/24 12:10 Focused HPI: Patient is a 63-year-old female who presents to the ER with 2 day history of variable blood pressures, nausea, lightheadedness, dizziness, vision impairment and ?feeling like I am going to pass out.? She reports her last known well was 10:30 a.m. yesterday. Patient reports she has a history of high blood pressure and migraines. Yesterday she started experiencing similar symptoms that she experiences prior to her migraines including ?seeing lightening and blurred vision. She reports her symptoms have mostly resolved at this time although she continues to experience nausea. Patient endorses she has a PCP and is on lisinopril and hydrochlorothiazide every day although she did not take them this morning because ?I wanted to see where my blood pressure was at. Patient denies any recent fevers, congestion, cough, abdominal pain, urinary symptoms. She reports she and her share their grandchildren and they have had viral illnesses recently. GENERAL: Well-appearing, well-nourished, and in no acute distress. HEAD: Normocephalic, atraumatic. CHEST: Clear to auscultation. ?No respiratory distress. HEART: Regular rate and rhythm.? NEURO: ?Alert and oriented x3. Cranial nerves intact. Patient screened in triage and initial orders placed.? ?Additional care and disposition to be based upon?diagnostic testing and treatment. Related Data Home Medications ?Medication ?Instructions ?Recorded ?Confirmed ?Last Taken ?Type lisinopril 20 mg tablet 20 mg PO DAILY 07/17/23 07/17/23 Unknown History Allergies Allergy/AdvReac Type Severity Reaction Status Date / Time No Known Allergies Allergy Verified 07/17/23 15:00 ON LICENSE OF [facility] Past Medical History Medical History Diverticulitis Diverticulosis Hypertension Family History Family History Mother Hypertension Social History Social History Smoking status: Former smoker Smoking end date: 05/03/13 Alcohol intake: never Substance use: never Do You Feel Safe in your Home?: Yes Lack of Transportation: No Lack of Food: Never True Current Housing: I Have Housing Concerned About Future Housing: No Difficulty Paying Gas/Electric Bills: No Difficulty Paying for Meds: No Currently Unemployed: No Education: Master's Degree or Higher Difficulty w/ Childcare or Family Care: No Spiritual care concerns: No Course Vital Signs Vital signs: Vital Signs Temperature 36.4 C 06/07/24 11:24 Pulse Rate 93 06/07/24 11:24 Respiratory Rate 16 06/07/24 11:24 Blood Pressure 154/61 H 06/07/24 11:24 Pulse Oximetry 99 06/07/24 11:24 Temperature 36.4 C 06/07/24 11:24 Pulse Rate 93 06/07/24 11:24 Respiratory Rate 16 06/07/24 11:24 Blood Pressure 154/61 H 06/07/24 11:24 Pulse Oximetry 99 06/07/24 11:24 Discharge Plan Discharge Patient Language: Malian Prescriptions: No Action lisinopril 20 mg tablet 20 mg PO DAILY amoxicillin-pot clavulanate 875-125 mg tablet 1 tablet PO Q12H Qty: 8 0RF Follow-up/Referrals: Yogesh,MD Sincere [Primary Care Provider] -
--- OUTSIDE RECORDS SUMMARY | 2024-06-07 12:46 | XMS_ITS | Clinical Summary ---
Author Organization [facility] Address [address] [place] [address] Care Team Providers Care Log Yard Manager Name Role Phone Sincere Zuñiga MD Primary Care Provider Allergies No known active allergies Medications meloxicam (MOBIC) 7.5 mg tabletIndication s:Osteoarthritis Take 1 tablet (7.5 mg total) by mouth daily 30 tablet 03/01/2022 Active Active Problems Problem Noted Date Diagnosed Date Arthralgia of left shoulder region 03/01/2022 Social History Tobacco Use Types Packs/Day Years Used Date Smoking Tobacco: Never Assessed Comments No Sex and Gender Information Value Date Recorded Sex Assigned at Not on file 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 Gender Identity Not on file Sexual Orientation Not on file Obstetrics History Last Filed Vital Signs Vital Sign Reading Time Taken Comments Blood Pressure 159/81 03/01/2022 6:43 PM CDT Pulse 74 03/01/2022 6:43 PM CDT Temperature 36.9 ??C (98.4 ??F) 03/01/2022 6:43 PM CD T Respiratory Rate 18 03/01/2022 6:43 PM CDT Oxygen Saturation 97% 03/01/2022 6:43 PM CDT Inhaled Oxygen Concentration - - Weight 108.5 kg (239 lb 3.2 oz) 03/01/2022 2:48 PM CDT Height 170.2 cm (5' 7 ) 03/01/2022 2:48 PM CDT Body Mass Index 37.46 03/01/2022 2:48 PM CDT Plan of Treatment Health Maintenance Due Date Last Done Comments Breast Cancer Screening-Mammogram 1960 Cervical Cancer Screening 1961 Colon Cancer Screening-Colonoscopy 1961 Depression Screening 1961 Hepatitis C Screening 1960 Regular Well Visit/Exam 18-64 07/06/1979 DTaP/Tdap/Td Vaccine (1 - Tdap) 08/17/2010 08/16/2010 Zoster Vaccine (1 of 2) 07/06/2011 Influenza Vaccine (#1) 2024 2, 01/27/2011, 03/20/2009, Additional history exists Pneumococcal vaccine <65 Aged Out No longer eligible based on patient's age to complete this topic Insurance [facility] Care Teams Log Yard Manager Relationship Specialty Start Date End Date Sincere Zuñiga MD [address] [place] [address] PCP - General Family Medicine 08/19/21
--- OUTSIDE RECORDS SUMMARY | 2024-06-07 12:46 | XMS_ITS | Clinical Summary ---
Author Organization [facility] Address [address] [place] [address] Care Team Providers Care Porter Luggage Name Role Phone Christianne Ramirez Primary Care Provider [phone] Source Comments [facility],non-owned Affiliates and Associated Physician Practices is amultiple site organization consisting of ambulatory clinics and hospital sitesin [place], [place], [place] and [place]. This disclosure is being madepursuant to the Care Everywhere program and may not contain all information available regarding this patient. Last updated 18.[facility] Allergies No known active allergies Medications * Be aware that medications may not be up to date on this document. Alwaysverify current medications with the patient. Medication Sig Dispensed Refills Start Date End Date Status levonorgestrel (MIRENA) 20 MCG/24HR IUD 1 Device by Intrauterine route once. Active benazepril (LOTENSIN) 20 MG tabletIndications:H ypertension Take 1 Tab by mouth once daily. 90 Tab 1 02/28/2013 Active buPROPion SR 12hr (WELLBUTRIN-SR) 150 MG tabletIndications:D epression Take 1 Tab by mouth 2 times daily. 60 Tab 6 02/28/2013 Active hydrocodone-acetami nophen (NORCO) 5-325 MG tablet Take 1 Tab by mouth every 4 hours as needed for Pain 15 Tab 0 02/27/2015 Active Active Problems Problem Noted Date Diagnosed Date Pain in left wrist 12/21/2012 Essential hypertension 06/23/2012 Overview (01/31/2015): Immunizations Name Administration Dates Next Due INFLUENZA VACCINE 03/02/2012,01/27/2011,03/20/20 09,03/13/2008 TETANUS 08/16/2010 Family History Medical History Relation Name Comments Asthma Brother CVA<55(male) Father age 76 Hypertension Father Thyroid Disease Mother Relation Name Status Comments Brother Father Alive Mother Social History Tobacco Use Types Packs/Day Years Used Date Smoking Tobacco: Every Day Cigarettes Tobacco Cessation:Ready to Q uit: Yes Alcohol Use Standard Drinks/Week Comments No 0 (1 standard drink = 0.6 oz pur e alcohol) Sex and Gender Information Value Date Recorded Sex Assigned at Not on file Gender Identity Not on file Sexual Orientation Not on file Last Filed Vital Signs Vital Sign Reading Time Taken Comments Blood Pressure 117/69 02/27/2015 10:46 PM CDT Pulse 98 02/27/2015 3:30 PM CDT Temperature 37.1 ??C (98.7 ??F) 02/27/2015 3:30 PM CD T Respiratory Rate 20 02/27/2015 3:30 PM CDT Oxygen Saturation 96% 02/27/2015 10:47 PM CDT Inhaled Oxygen Concentration - - Weight 86.2 kg (190 lb) 02/27/2015 3:30 PM CDT Height 170.2 cm (5' 7.01 ) 02/27/2015 3:30 PM CD T Body Mass Index 29.75 02/27/2015 3:30 PM CDT Plan of Treatment Health Maintenance Due Date Last Done Comments COLOGUARD (AGES 45-75) - COLON CA SCREENING 1961 COLON MONITORING 1961 COLONOSCOPY - COLON CA SCREENING 1961 CT COLONOGRAPHY - COLON CA SCREENING 1961 Colorectal Cancer Screening 1961 FIT - COLON CA SCREENING 1961 FLEX SIG - COLON CA SCREENING 1961 HIV SCREENING 1976 HEPATITIS C SCREENING 07/01/1979 PNEUMOCOCCAL VACCINE 50+ (1 of 2 - PCV) 1980 PNEUMOCOCCAL VACCINE (1 of 2 - PCV) 1980 DIABETES-STATIN 2001 ZOSTER VACCINE (1 of 2) 07/06/2011 DIABETES-HGB A1C 08/29/2012 DIABETES-FOOT EXAM WITH MONOFILAMENT 08/29/2013 08/29/2012 (Other - see comments), 08/29/2012 (Other - see comments), 08/29/2012 (Other - see comments) PAP SMEAR 08/14/2014 08/15/2011, 08/01 (Previously completed), 08/15/2011 (Previously completed), Additional history exists DIABETES RETINOPATHY SCREENING 08/29/2014 08/29/2012 MAMMOGRAM 08/29/2014 08/29/2012, 08/02, 12/01/2009 (Previously completed), Additional history exists DIABETES-SERUM CREATININE 02/28/2016 02/27/2015 DTAP/TDAP/TD VACCINES (2 - Td or Tdap) 08/16/2020 08/16/2010 COVID-19 VACCINE ( - 2023- season) 2024 INFLUENZA VACCINE (#1) 2024 2, 01/27/2011, 03/20/2009, Additional history exists DEPRESSION SCREENING 05/03/2024 DIABETES - URINE PROTEIN SCREENING 05/03/2024 08/29/2012, 03/05/2012 (Previously completed) Respiratory Syncytial Virus (RSV) Vaccine Pt: or over 60 yrs (1 - 1-dose 75+ series) 2036 HEPATITIS B VACCINE Aged Out No longe r eligible based on patient's age to complete this topic HIB VACCINE Aged Out No longer eligi ble based on patient's age to complete this topic HPV VACCINE Aged Out No longer eligi ble based on patient's age to complete this topic MENINGOCOCCAL (Group B) VACCINE Aged Out No longer eligible based on patient's age to complete this topic MENINGOCOCCAL VACCINE Aged Out No mayra kwaku eligible based on patient's age to complete this topic Procedures Procedure Name Priority Date/Time Associated Diagnosis Comments COMPREHENSIVE METABOLIC PANEL STAT 02/27/2015 6:25 PM CDT MICROALBUMIN URINE RANDOM Routine 08/29/2012 10:21 AM CDT Hypertension from Last 3 Months or Most Recently Relevant to Health Maintenance Results * (ABNORMAL) COMPREHENSIVE METABOLIC PANEL (02/27/2015 6:25 PM CDT) Glucose 94 70 - 125 mg/dL 02/27/2015 6:59 PM CDT [facility] Sodium 140 136 - 145 mmol/L 02/27/2015 6:59 PM CDT [facility] Potassium 4.0 3.4 - 4.5 mmol/L 02/27/2015 6:59 PM CDT [facility] Chloride 109(H) 98 - 107 mmol/L 02/27/2015 6:59 PM CDT [facility] CO2 21(L) 22 - 29 mmol/L 02/27/2015 6:59 PM CDT [facility] Calcium 10.06 8.4 - 10.2 mg/dL 02/27/2015 6:59 PM CDT [facility] Anion Gap 14 10 - 20 mmol/L 02/27/2015 6:59 PM CDT [facility] BUN 16.4 9.8 - 20.1 mg/dL 02/27/2015 6:59 PM CDT [facility] Creatinine 0.71 0.57 - 1.11 mg/dL 02/27/2015 6:59 PM CDT [facility] eGFR by MDRD >60 >60 mL/min/1.7 3m2 02/27/2015 6:59 PM CDT [facility] eGFR by MDRD >60 >60 mL/min/1.7 3m2 02/27/2015 6:59 PM CDT [facility] Alkaline Phosphatase 71 40 - 150 U/L 02/27/2015 6:59 PM CDT [facility] ALT 15 5 - 55 U/L 02/27/2015 6:59 PM CDT [facility] AST 14 5 - 34 U/L 02/27/2015 6:59 PM CDT [facility] Protein Total 7.7 6.4 - 8.3 gm/dL 02/27/2015 6:59 PM CDT [facility] Albumin 4.1 3.5 - 5.0 gm/dL 02/27/2015 6:59 PM CDT [facility] Globulin Total 3.6 2.6 - 4.0 gm/dL 02/27/2015 6:59 PM CDT [facility] Albumin/Globulin Ratio 1.1 0.9 - 1.6 02/27/2015 6:59 PM CDT [facility] Bilirubin Total 0.3 0.2 - 1.2 mg/dL 02/27/2015 6:59 PM CDT [facility] Blood BLOOD SPECIMEN / Unknown 02/27/2015 6:25 PM CDT 02/27/2015 6:35 PM CDT Katey Yin DIET ATTENDANT-OWNER ORAL SURGEON LAB - CHEMI STRY ORDERABLES [facility] [address] [id number], [facility] * MICROALBUMIN URINE RANDOM (08/29/2012 10:21 AM CDT) Microalbumin Urine 1.4 0.0 - 17.0 ug/mL [facility] ACCOUNT BILL Urine specimen (specimen) URINE / Unknown 08/29/2012 10:21 AM CDT 08/29/2012 6:55 PM CDT Narrative Resulting Agency Comment [facility] [address] ??[facility] [phone] Christianne Ramirez DO LAB - URINE CHEMISTR Y ORDERABLES [facility] ACCOUNT BILL from Last 3 Months or Most Recently Relevant to Health Maintenance Care Teams Porter Luggage Relationship Specialty Start Date End Date Christianne Ramirez DO PCP - General Family Medicine 08/23/12
--- OUTSIDE RECORDS SUMMARY | 2024-06-07 12:46 | XMS_ITS | Clinical Summary ---
Author Organization [facility] Address [address] [place] [address] Care Team Providers Care Biofuels Plant Superintendent Name Role Phone Sincere Zuñiga MD Primary Care Provider [phone] Allergies No known active allergies Medications hydroCHLOROthiazi de 25 MG tabletIndications :Essential hypertension Take 1 tablet (25 mg total) by mouth every morning. 90 tablet 3 0 Active lisinopril (PRINIVIL) 20 MG tablet Take 1 tablet (20 mg total) by mouth daily. Active VITAMIN D, CHOLECALCIFEROL, OR Take 1 tablet by mouth daily. Active miSOPROStol (CYTOTEC) 200 MCG tablet INSERT 2 TABLETS VAGINALLY ON THE NIGHT BEFORE SCHEDULED PROCEDURE Active Active Problems Problem Noted Date Diagnosed Date Complication of intrauterine device (IUD) 2023 Anxiety 06/17/2019 Dizziness 10/11/2017 Hypertension 07/12/2017 Blurred vision, right eye 11/10/2016 Cataract 11/10/2016 Sebaceous cyst 07/17/2015 Urgency of urination 07/17/2015 Vaginitis, atrophic 07/17/2015 Pain in left wrist 12/21/2012 Essential hypertension 06/23/2012 Overview (05/30/2018): Overview: Diverticulitis Resolved Problems Problem Noted Date Diagnosed Date Resolved Date Hives 09/19/2019 04/10/2020 Rash 06/04/2015 04/10/2020 Immunizations Name Administration Dates Next Due Influenza (Generic) 03/02/2012,01/27/2011,2008,03/13/2008 Td (Decavac) 08/16/2010 Family History Medical History Relation Comments CHF Father Diabetes Father Hypertension Father Thyroid Disease Mother hypothyroidism Relation Status Comments Father Mother Social History Tobacco Use Types Packs/Day Years Used Date Smoking Tobacco: Former Cigarettes 1 40.2 1 978 - 08/01/2017 Smokeless Tobacco: Never Tobacco Cessation:Counseling Given: Not Answered Alcohol Use Standard Drinks/Week Comments No 0 (1 standard drink = 0.6 oz pur e alcohol) AUDIT-C Answer Date Recorded Frequency of Alcohol Consumption Never 05/24/2018 Average Number of Drinks Not on file 019 Frequency of Binge Drinking Not on file 05/04 PHQ-2 Answer Date Recorded PHQ-2 Score 0 06/16/2019 Comments No Sex and Gender Information Value Date Recorded Sex Assigned at Not on file Legal Sex Female 4:21 PM CDT Gender Identity Not on file Sexual Orientation Not on file Last Filed Vital Signs Vital Sign Reading Time Taken Comments Blood Pressure 125/72 01/28/2024 9:37 AM CDT Pulse 77 01/28/2024 9:37 AM CDT Temperature 36.2 ??C (97.2 ??F) 01/28/2024 8:13 AM CD T Respiratory Rate 16 01/28/2024 9:37 AM CDT Oxygen Saturation 96% 01/28/2024 9:37 AM CDT Inhaled Oxygen Concentration - - Weight 104.3 kg (230 lb) 01/28/2024 6:42 AM CDT Height 170.2 cm (5' 7 ) 01/28/2024 6:42 AM CDT Body Mass Index 36.02 01/28/2024 6:42 AM CDT Plan of Treatment Health Maintenance Due Date Last Done Comments Colorectal Cancer Screening Colonoscopy (10 Years) 1960 Hepatitis C 07/06/1979 Cervical Cancer Screening Pap with HPV Testing (Age 30 to 64) Every 5 Years 07/06/1991 DTaP, Tdap and Td Vaccines (1 - Tdap) 08/17/2010 08/16/2010 Zoster Vaccines (1 of 2) 07/06/2011 Cervical Cancer Screening Pap Smear (Age 30 to 64) Every 3 Years 07/16/2018 07/17/2015 Cervical Cancer Screening with HPV 07/16/2018 Annual Physical 05/24/2019 05/24/2018 Mammogram Screening 10/27/2020 10/27/2018, 11/11/2016, 07/26/2015 Lung Cancer Screening 08/19/2022 08/19/2021 COVID-19 Vaccine ( season) 2024 Influenza Adult (#1) 2024 03/02/2012, 01/27/2011, 03/20/2009, Additional history exists RSV Immunization or 60+ Years (1 - 1-dose 75+ series) 2036 Meningococcal B Vaccine Aged Out No l onger eligible based on patient's age to complete this topic Meningococcal Vaccine Aged Out No mayra kwaku eligible based on patient's age to complete this topic Pneumococcal Vaccine: Pediatrics (0 to 5 Years) and At-Risk Patients (6 to 64 Years) Aged Out No longer eligible based on patient's age to complete this topic RSV Immunizations Under 20 Months Aged Out No longer eligible based on patient's age to complete this topic Procedures Procedure Name Priority Date/Time Associated Diagnosis Comments MG SCREENING W JENNY ARLET DIGI Routine 10/27/2018 2:40 PM CDT Screening for malignant neoplasm of breast THINPREP IMAGING PAP REFLEX HPV MRNA E6/E7 Routine 07/17/2015 12:00 AM CDT from Last 3 Months or Most Recently Relevant to Health Maintenance Results * MG SCREENING W JENNY ARLET DIGI (10/27/2018 2:40 PM CDT) Anatomical Region Laterality Modality Breast Bilateral Mammography 10/27/2018 3:57 PM CDT Narrative 10/27/2018 3:58 PM CDT EXAMINATION: MG SCREENING W JENNY ARLET DIGI WITH TOMOSYNTHESIS AND COMPUTER-AIDED DETECTION (CAD) DATE: 10/27/2018 2:28 PM COMPARISON STUDIES: ??11/11/2016, 06/20/2015, 08/15/2011. CLINICAL HISTORY: ??ROUTINE ?? . Screening, no complaints. FINDINGS: Bilateral CC, MLO, 2-D and 3-D acquisitions. Scattered residual fibroglandular parenchyma . Similar in appearance and distribution to the previous exams. No evidence of dominant mass, architectural distortion, skin thickening, nipple retraction or suspicious clusters of microcalcifications. ??Benign calcifications redemonstrated. ?. CONCLUSION: 1. ??BI-RADS Category 2 - benign findings. Annual screening mammography recommended 2. ??TISSUE TYPE: Category B - There are areas of scattered fibroglandular density. MQSA BI-RADS Categories: Category 0 - needs additional imaging evaluation. Category 1 - negative. Category 2 - benign findings. Category 3 - probably benign findings, but short interval follow-up ?is recommended. Category 4 - suspicious abnormality and biopsy should be considered ?though the lesion may well be benign. Category 5 - highly suggestive of malignancy and appropriate action ?should be taken. ?? A) ??A negative report should not delay a biopsy if a dominant or ?clinically suspicious mass is present. B) ??Adenosis and dense breasts may obscure an underlying neoplasm. C) ??Study interpreted with computer aided detection. Voice recognition software utilized. Interpreted By: Ozzie Soto, 10/27/2018 3:57 PM Kan Villatoro SUPERVISOR [employer] [facility] Final Result * THINPREP IMAGING PAP REFLEX HPV MRNA E6/E7 (07/17/2015 12:00 AM CDT) CLINICAL INFORMATION: SEE NOTE [facility] TO EPIC CONVERSION Comment:Result Comment: Rout ine exam Clinical Information: SEE NOTE [facility] TO EPIC CONVERSION Comment:Result Comment: Info rmation not provided Date of Last Pap SEE NOTE [facility] TO EPIC CONVERSION Comment:Result Comment: Info rmation not provided Previous Biopsy? SEE NOTE [facility] TO EPIC CONVERSION Comment:Result Comment: Info rmation not provided SOURCE (QST) SEE NOTE [facility] TO EPIC CONVERSION Comment:Result Comment: Info rmation not provided COMMENT SEE NOTE [facility] T O EPIC CONVERSION Comment: Result Comment: Satisfactory for evaluation. Endocervical/transformation zone component absent. Age and/or menstrual status not provided PAP INTERPRETATION/RESUL TS SEE NOTE [facility] TO EPIC CONVERSION Comment:Result Comment: Nega tive for intraepithelial lesion or malignancy. COMMENT: SEE NOTE [facility] T O EPIC CONVERSION Comment: Result Comment: This Pap test has been evaluated with computer assisted technology. DRAPERY SUPERVISOR SEE NOTE [facility] TO EPIC CONVERSION Comment: Result Comment: MEF, CT(ASCP) CT screening location: [place] [address] [place] [address] Test Performed at: [facility] ??[id number] ? ISAIAH JACKSON MD 07/17/2015 07/17/2015 Narrative [facility] TO EPIC CONVERSION - 07/18/2015 10:03 AM CDT Result Communication: No patient communication needed at this time us Carmelita Cabello MD PATHOLOGY/CYTOLOGY ORDERABLE S Final Result [facility] TO EPIC CONVERSION from Last 3 Months or Most Recently Relevant to Health Maintenance Insurance [employer] Advance Directives * Full Code (Latest Code Status on File) Date Activated Date Inactivated Comments 01/28/2024 8:18 AM 01/28/2024 12:04 PM Care Teams Biofuels Plant Superintendent Relationship Specialty Start Date End Date Sincere Zuñiga MD [address] [place] [phone] PCP - General HOSPITALIST 01/28/24
--- OUTSIDE RECORDS SUMMARY | 2024-06-07 12:46 | XMS_ITS | Encounter Summary ---
Author Organization [facility] Address [address] [place] [address] Care Team Providers Care Licensed Mental Health Counselor Name Role Phone Janet Alegria Primary Care Provider [phone] Sincere Zuñiga MD Primary Care Provider [phone] Encounter Details Date Type Department Care Team (Late st Contact Info) Description 07/25/2020 [employer] Message [facility] [address] [place] [id number] [facility] RE:Annual Physical Social History Tobacco Use Types Packs/Day Years Used Date Smoking Tobacco: Former Cigarettes 1 40.2 1 978 - 08/01/2017 Smokeless Tobacco: Never Alcohol Use Standard Drinks/Week Comments No 0 [...] on file Sexual Orientation Not on file documented as of this encounter Plan of Treatment Not on file documented as of this encounter Visit Diagnoses Not on filedocumented in this encounter Care Teams Licensed Mental Health Counselor Relationship Specialty Start Date End Date Janet Alegria FNP PCP - General Nurse Practitioner Family 04/04/2006/09 Sincere Zuñiga MD [address] [phone] PCP - General HOSPITALIST 01/28/24 documented as of this encounter
--- OUTSIDE RECORDS SUMMARY | 2024-06-07 12:46 | XMS_ITS | Referral Summary ---
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
--- OUTSIDE RECORDS SUMMARY | 2024-06-07 12:46 | XMS_ITS | Referral Summary ---
Author Organization [facility] [employer] Address [address] [place] [address] Care Team Providers Care Vocational Rehabilitation Counselor Name Role Phone Christianne Ramirez Primary Care Provider [phone] Source Comments [facility] [employer],non-owned Affiliates and Associated Physician Practices is amultiple site organization consisting of ambulatory clinics and hospital sitesin [place], [place], [place] and [place]. This disclosure is being madepursuant to the Care Everywhere program and may not contain all information available regarding this patient. Last updated 18.[facility] [employer] Allergies No known active allergies Medications * [...] Due INFLUENZA VACCINE 03/02/2012,01/27/2011,03/20/20 09,03/13/2008 TETANUS 08/16/2010 Social History Tobacco Use Types Packs/Day Years [...] 02/27/2015 3:30 PM CDT Plan of Treatment Not on file Procedures Procedure Name Priority Date/Time Associated Diagnosis [...] - 107 mmol/L 02/27/2015 6:59 PM CDT [facility] CO2 21(L) 22 - 29 mmol/L 02/27/2015 6:59 PM CDT [facility] Calcium 10.06 8.4 - 10.2 mg/dL 02/27/2015 6:59 PM CDT [facility] Anion Gap 14 10 - 20 mmol/L 02/27/2015 6:59 PM CDT [facility] BUN 16.4 9.8 - 20.1 mg/dL 02/27/2015 6:59 PM CDT [facility] Creatinine 0.71 0.57 - 1.11 mg/dL 02/27/2015 6:59 PM CDT [facility] eGFR by MDRD >60 >60 mL/min/1.7 3m2 02/27/2015 6:59 PM CDT [facility] eGFR by MDRD >60 >60 mL/min/1.7 3m2 02/27/2015 6:59 PM CDT [facility] Alkaline Phosphatase 71 40 - 150 U/L 02/27/2015 6:59 PM CDT [facility] ALT 15 5 - 55 U/L 02/27/2015 6:59 PM CDT [facility] AST 14 5 - 34 U/L 02/27/2015 6:59 PM CDT [facility] Protein Total 7.7 6.4 - 8.3 gm/dL 02/27/2015 6:59 PM CDT [facility] Albumin 4.1 3.5 - 5.0 gm/dL 02/27/2015 6:59 PM CDT [facility] Globulin Total 3.6 2.6 - 4.0 gm/dL 02/27/2015 6:59 PM CDT [facility] Albumin/Globulin Ratio 1.1 0.9 - 1.6 02/27/2015 6:59 PM CDT [facility] Bilirubin Total 0.3 0.2 - 1.2 mg/dL 02/27/2015 6:59 PM T [facility] Blood BLOOD SPECIMEN / Unknown 02/27/2015 6:25 PM CDT 02/27/2015 6:35 PM CDT Katey Yin [employer] [facility] - CHEMI STRY ORDERABLES [facility] [address] [place], [place] [address] * MICROALBUMIN URINE RANDOM (08/29/2012 10:21 AM CDT) Microalbumin Urine 1.4 0.0 - 17.0 ug/mL [facility] ACCOUNT BILL Urine specimen (specimen) URINE / Unknown 08/29/2012 10:21 AM CDT 08/29/2012 6:55 PM CDT Narrative Resulting Agency Comment [facility] [address] ??[facility] [phone] Christianne Ramirez DO LAB - URINE CHEMISTR Y ORDERABLES [facility] ACCOUNT BILL from Last 3 Months or Most Recently Relevant to Health Maintenance Care Teams Vocational Rehabilitation Counselor Relationship Specialty Start Date End Date Christianne Ramirez DO PCP - General Family Medicine 08/23/12
--- OUTSIDE RECORDS SUMMARY | 2024-06-07 12:46 | XMS_ITS | Patient Health Summary ---
Author Organization [facility] Address [address] [place] [address] Care Team Providers Care Prison Warden Name Role Phone Christianne Ramirez Primary Care Provider [phone] Note from [facility],non-owned Affiliates and Associated Physician Practices is amultiple site organization consisting of ambulatory clinics and hospital sitesin [place], [place], [place] and [place]. This disclosure is being madepursuant to the Care Everywhere program and may not contain all information available regarding this patient. Last updated 18.[facility] Allergies No known active allergies Medications * Be aware that medications may not be up to date on this document. Alwaysverify current medications with the patient. * levonorgestrel (MIRENA) 20 MCG/24HR IUD 1 Device by Intrauterine route once. * benazepril (LOTENSIN) 20 MG tablet(Started 02/28/2013) Take 1 Tab by mouth once daily. 1 refill left * buPROPion SR 12hr (WELLBUTRIN-SR) 150 MG tablet(Started 02/28/2013) Take 1 Tab by mouth 2 times daily. 6 refills left * hydrocodone-acetaminophen (NORCO) 5-325 MG tablet(Started 02/27/2015) Take 1 Tab by mouth every 4 hours as needed for Pain Active Problems Problem Noted Date Diagnosed Date Pain in left wrist 12/21/2012 Essential hypertension 06/23/2012 Immunizations * INFLUENZA VACCINE(Given 03/02/2012, 01/27/2011, 03/20/2009, 03/13/2008) * TETANUS(Given 08/16/2010) Social History Tobacco Use Types Packs/Day Years [...] Mass Index 29.75 02/27/2015 3:30 PM CDT Procedures * CT ABDOMEN PELVIS W CONTRAST(Performed 02/27/2015) Performed for RLQ abdominal pain * LIPASE BLOOD(Performed 02/27/2015) * COMPREHENSIVE METABOLIC PANEL(Performed 02/27/2015) * CBC W AUTO DIFFERENTIAL(Performed 02/27/2015) * URINE MICROSCOPIC ONLY REFLEX TO CULTURE(Performed 02/27/2015) * URINALYSIS REFLEX MICROSCOPIC REFLEX CULTURE(Performed 02/27/2015) * CULTURE URINE(Performed 02/27/2015) * MICROALBUMIN URINE RANDOM(Performed 08/29/2012) Performed for Hypertension * GROSS + MICRO EXAM(Performed 09/14/2007) * GROSS + MICRO EXAM(Performed 08/23/2007) * GROSS + MICRO EXAM(Performed 10/29/2006) * GROSS + MICRO EXAM(Performed 07/30/2006) * GROSS + MICRO EXAM(Performed 06/28/2006) Results * CT ABDOMEN AND PELVIS WITH IV CONTRAST (02/27/2015 7:26 PM CDT) Anatomical Region Laterality Modality Abdomen, Pelvis Computed Tomogra phy 02/27/2015 7:48 PM CDT Impressions 02/27/2015 9:10 PM CDT Inflammatory change with pericolonic fat stranding at descending colon consistent with mild diverticulitis without abscess formation or perforation. No apparent mass lesion, bowel obstruction, or obstructive uropathy. Chronic and postoperative change as noted above. Narrative 02/27/2015 9:[address] ABDOMEN AND PELVIS WITH IV WITHOUT ORAL CONTRAST WITH SAGITTAL AND CORONAL RECONSTRUCTION 02/27/2015 HISTORY: Right lower quadrant pain. CONTRAST DOSE: 98 mL Omnipaque 300 IV. FINDINGS: Minor bibasilar dependent atelectasis without pulmonary mass, pulmonary consolidation, or pleural fluid collections at visualized lung bases. Small umbilical hernia containing fat only. T-configuration IUD within the uterus. No free intraperitoneal air or free pelvic fluid. Phlebolith formation in pelvis. No apparent hepatic, splenic, pancreatic, adrenal, renal, or pelvic mass lesions. Unremarkable gallbladder. Appendix not identified consistent with history of prior appendectomy provided by clinician. No apparent bowel obstruction or obstructive uropathy. Colonic diverticulosis noted and with mild pericolonic fat stranding noted in descending colon at the level of iliac crests consistent with mild diverticulitis as reported to JESSIKA Vines at 1955 hours. No apparent abscess formation or perforation. Minor degenerative and hypertrophic change in lumbar and visualized lower thoracic spine. Bilateral renal excretion. Procedure Note Mane Robert MD - 02/27/2015 CT ABDOMEN AND PELVIS WITH IV WITHOUT ORAL CONTRAST WITH SAGITTAL AND CORONAL RECONSTRUCTION 02/27/2015 HISTORY: Right lower quadrant pain. CONTRAST DOSE: 98 mL Omnipaque 300 IV. FINDINGS: Minor bibasilar dependent atelectasis without pulmonary mass, pulmonary consolidation, or pleural fluid collections at visualized lung bases. Small umbilical hernia containing fat only. T-configuration IUD within the uterus. No free intraperitoneal air or free pelvic fluid. Phlebolith formation in pelvis. No apparent hepatic, splenic, pancreatic, adrenal, renal, or pelvic mass lesions. Unremarkable gallbladder. Appendix not identified consistent with history of prior appendectomy provided by clinician. No apparent bowel obstruction or obstructive uropathy. Colonic diverticulosis noted and with mild pericolonic fat stranding noted in descending colon at the level of iliac crests consistent with mild diverticulitis as reported to JESSIKA Vines at 1955 hours. No apparent abscess formation or perforation. Minor degenerative and hypertrophic change in lumbar and visualized lower thoracic spine. Bilateral renal excretion. IMPRESSION Inflammatory change with pericolonic fat stranding at descending colon consistent with mild diverticulitis without abscess formation or perforation. No apparent mass lesion, bowel obstruction, or obstructive uropathy. Chronic and postoperative change as noted above. Katey Yin BLOCK BREAKER-AGRICULTURAL LABOR CAMP MANAGER CT ORDERABL ES * (ABNORMAL) CBC W AUTO DIFFERENTIAL (02/27/2015 6:25 PM CDT) WBC 9.4 4.0 - 10.0 x10^9/L 02/27/2015 6:43 PM CDT [facility] RBC 5.28(H) 3.93 - 5.22 x10^12/L 02/27/2015 6:43 PM CDT [facility] Hemoglobin 14.3 11.2 - 15.7 gm/dL 02/27/2015 6:43 PM CDT [facility] Hematocrit 43.6 34.1 - 44.9 % 02/27/2015 6:43 PM CDT [facility] MCV 82.6 78.0 - 100.0 fl 02/27/2015 6:43 PM CDT [facility] MCH 27.1 25.6 - 34.0 pg 02/27/2015 6:43 PM CDT [facility] MCHC 32.8 32.3 - 36.5 gm/dL 02/27/2015 6:43 PM CDT [facility] RDW 13.7 11.6 - 14.4 % 02/27/2015 6:43 PM CDT [facility] MPV 11.1 9.4 - 12.4 fl 02/27/2015 6:43 PM CDT [facility] Platelet Count 184 163 - 369 x10^9/L 02/27/2015 6:43 PM CDT [facility] Neutrophils % 61.3 40.0 - 75.0 % 02/27/2015 6:43 PM CDT [facility] Lymphocytes % 27.0 19.3 - 53.1 % 02/27/2015 6:43 PM CDT [facility] Monocytes % 9.1 4.7 - 12.5 % 02/27/2015 6:43 PM CDT [facility] Eosinophils % 2.2 0.7 - 7.0 % 02/27/2015 6:43 PM CDT [facility] Basophils % 0.2 0.1 - 1.2 % 02/27/2015 6:43 PM CDT [facility] Immature Granulocytes 0.2 0 - 0.5 % 02/27/2015 6:43 PM CDT [facility] Neutrophil Absolute 5.73 1.56 - 6.13 x10^9/L 02/27/2015 6:43 PM CDT [facility] Lymphocytes Absolute 2.52 1.18 - 3.74 x10^9/L 02/27/2015 6:43 PM CDT [facility] Monocytes Absolute 0.85 0.24 - 0.86 x10^9/L 02/27/2015 6:43 PM CDT [facility] Eosinophils Absolute 0.21 0.04 - 0.54 x10^9/L 02/27/2015 6:43 PM CDT [facility] Basophils Absolute 0.02 0.01 - 0.08 x10^9/L 02/27/2015 6:43 PM CDT [facility] Immature Granulocytes Absolute 0.02 0 - 0.03 x10^9/L 02/27/2015 6:43 PM CDT [facility] nRBC Auto 0 <=0 /100 WBC 02/27/2015 6:43 PM CDT [facility] nRBC Absolute 0.00 <=0 x10^9/L 02/27/2015 6:43 PM CDT [facility] Blood BLOOD SPECIMEN / Unknown 02/27/2015 6:25 PM CDT 02/27/2015 6:35 PM CDT Katey Yin BLOCK BREAKER-AGRICULTURAL LABOR CAMP MANAGER LAB - HEMAT OLOGY ORDERABLES Performing Organization Address City/State/[facility] Co de Phone Number [facility] [address] [place] [address], [facility] * (ABNORMAL) COMPREHENSIVE METABOLIC PANEL (02/27/2015 6:25 PM CDT) [facility] Glucose 94 70 - 125 mg/dL 02/27/2015 [...] - 20 mmol/L 02/27/2015 6:59 PM CDT [facility] BUN 16.4 9.8 - 20.1 mg/dL 02/27/2015 6:59 PM CDT [facility] Creatinine 0.71 0.57 - 1.11 mg/dL 02/27/2015 6:59 PM CDT [facility] eGFR by MDRD >60 >60 mL/min/1.7 3m2 02/27/2015 6:59 PM CDT [facility] eGFR by MDRD >60 >60 mL/min/1.7 3m2 02/27/2015 6:59 PM CDT [facility] Alkaline Phosphatase 71 40 - 150 U/L 02/27/2015 6:59 PM CDT [facility] ALT 15 5 - 55 U/L 02/27/2015 6:59 PM CDT [facility] AST 14 5 - 34 U/L 02/27/2015 6:59 PM CDT [facility] Protein Total 7.7 6.4 - 8.3 gm/dL 02/27/2015 6:59 PM CDT [facility] Albumin 4.1 3.5 - 5.0 gm/dL 02/27/2015 6:59 PM CDT [facility] Globulin Total 3.6 2.6 - 4.0 gm/dL 02/27/2015 6:59 PM CDT [facility] Albumin/Globulin Ratio 1.1 0.9 - 1.6 02/27/2015 6:59 PM CDT [facility] Bilirubin Total 0.3 0.2 - 1.2 mg/dL 02/27/2015 6:59 PM CDT [facility] Blood BLOOD SPECIMEN / Unknown 02/27/2015 6:25 PM CDT 02/27/2015 6:35 PM CDT Katey Yin BLOCK BREAKER-AGRICULTURAL LABOR CAMP MANAGER LAB - CHEMI STRY ORDERABLES [facility] [address] [place] [address], [facility] * LIPASE BLOOD (02/27/2015 6:25 PM CDT) Lipase 35 8 - 78 U/L 02/27/2015 6:59 PM CDT [facility] Blood BLOOD SPECIMEN / Unknown 02/27/2015 6:25 PM CDT 02/27/2015 6:35 PM CDT [facility]y [facility]in [facility] - CHEMI STRY ORDERABLES Performing Organization Address City/[facility]/ZIP Co de Phone Number [facility] [address] * (ABNORMAL) URINALYSIS MICROSCOPIC ONLY W/REFLEX CULTURE (02/27/2015 6:15 PM CDT) RBC UA 0-2 None , 0-2 # /hpf 02/27/2015 6:55 PM CDT [facility] WBC UA 2-5 None , 0-2, 2-5 # /hpf 02/27/2015 6:55 PM CDT [facility] Bacteria UA 3+(A) None Seen, Trace 02/27/2015 6:55 PM CDT [facility] Epithelial Cell UA 0-2 0-2, 2-5, 5-10 02/27/2015 6:55 PM CDT [facility] Reflex Status Culture to follow 02/27/2015 6:55 PM CDT [facility] Urine URINE SPECIMEN OBTAINED BY CLEAN CATCH PROCEDURE / Unknown 02/27/2015 6:15 PM CDT 02/27/2015 6:35 PM CDT Narrative [facility] - 02/27/2015 6:55 PM CDT Bacteria, epithelial cells, mucus, and crystals are reported as quantity/HPF. Katey Yin [facility] - URINA LYSIS ORDERABLES [facility] [address] * (ABNORMAL) URINALYSIS ROUTINE W/REFLEX TO CULTURE (02/27/2015 6:15 PM CDT) Color UA Straw 02/27/2015 6:46 PM CDT [facility] Clarity UA Clear 02/27/2015 6:46 PM CDT [facility] Glucose UA Negative Negative 02/27/2015 6:46 PM CDT [facility] Bilirubin UA Negative Negative 02/27/2015 6:46 PM CDT [facility] Ketone UA Negative Negative 02/27/2015 6:46 PM CDT [facility] Specific [place] UA 1.020 1.005 - 1.030 02/27/2015 6:46 PM CDT [facility] pH UA 5.5 5.0 - 8.0 pH 02/27/2015 6:46 PM CDT [facility] Protein UA Negative Negative 02/27/2015 6:46 PM CDT [facility] Urobilinogen UA 0.2 0.2 - 1.0 EU/dL 02/27/2015 6:46 PM CDT [facility] Nitrite UA Negative Negative 02/27/2015 6:46 PM CDT [facility] Blood UA Trace(A) Negative 02/27/2015 6:46 PM CDT [facility] Leukocyte UA Trace(A) Negative 02/27/2015 6:46 PM CDT [facility] Urine Microscopy Urine microscopy to follow 02/27/2015 6:46 PM CDT [facility] Urine URINE SPECIMEN OBTAINED BY CLEAN CATCH PROCEDURE / Unknown 02/27/2015 6:15 PM CDT 02/27/2015 6:35 PM CDT Katey Yin BLOCK BREAKER-AGRICULTURAL LABOR CAMP MANAGER LAB - URINA LYSIS ORDERABLES [facility] [address] * (ABNORMAL) CULTURE URINE (02/27/2015 6:15 PM CDT) Culture >100,000 CFU/mL Escherichia coli(A) RAND 03/01/2015 8:40 AM CDT [facility] Urine URINE SPECIMEN OBTAINED BY CLEAN CATCH PROCEDURE / Unknown 02/27/2015 6:15 PM CDT 02/27/2015 6:35 PM CDT Narrative Organism Antibiotic Method Susceptibility Escherichia coli Ampicillin RAND <=8 ug/mL: Susceptible Escherichia coli Cefazolin RAND <=8 ug/mL: Susceptible Escherichia coli Cefoxitin RAND <=8 ug/mL: Susceptible Escherichia coli Ceftriaxone RAND <=1 ug/mL: Susceptible Escherichia coli Cefuroxime RAND <=4 ug/mL: Susceptible Escherichia coli Ciprofloxacin RAND <=1 ug/mL: Susceptible Escherichia coli Gentamicin RAND <=4 ug/mL: Susceptible Escherichia coli Levofloxacin RAND <=2 ug/mL: Susceptible Escherichia coli Nitrofurantoin RAND <=32 ug/mL: Susceptible Escherichia coli Trimethoprim-sulfamethoxazole RAND <=2 ug/mL: Susceptible Katey Yin BLOCK BREAKER-AGRICULTURAL LABOR CAMP MANAGER LAB - MICRO BIOLOGY ORDERABLES Performing Organization Address [facility]/ZIP Co de Phone Number [facility] [address] * MICROALBUMIN URINE RANDOM (08/29/2012 10:21 AM CDT) Microalbumin Urine 1.4 0.0 - 17.0 ug/mL [facility] ACCOUNT BILL Urine specimen (specimen) URINE / Unknown 08/29/2012 10:21 AM CDT 08/29/2012 6:55 PM CDT Narrative Resulting Agency Comment [facility] [address] ??[facility] [id number] Christianne Ramirez DO LAB - URINE CHEMISTR Y ORDERABLES Performing Organization Address City/[facility] Co de Phone Number [facility] ACCOUNT BILL * GROSS + MICRO EXAM (09/14/2007 9:40 AM CDT) Only the most recent of5 resultswithin the time period is included. Result CASE NUMBER [id number] Comment: ORDERING PHYSICIAN ??REAGAN EVANS SPECIMEN TYPE ?Cervical Cone-@1200 *CLINICAL HISTORY ? A 47 year old female with YANELI III, status post excisional biopsy, history of dysmenorrhea, and menorrhagia, status post intrauterine device insertion with good control, underwent cold conization of cervix and endocervical curettage for suspected residual dysplasia. SPECIMEN SOURCE ? A) Cervical conization at 12 00 position. B) Endocervical curettings. GROSS DESCRIPTION ? The specimen is received in two parts. A) Received in formalin, labeled with the patient's identification, and designated cervical conization at 12 00 position is a roughly tubular fragment of white, rubbery tissue measuring 1.5 - 2.0 cm in length and 0.9 (endocervical) to 2.0 cm in diameter (ectocervical). ??The cervical cone has been opened prior to the receipt. ??The open side is arbitrarily designated as 12 00. ??The cervical mucosa appears somewhat granular. The endocervical margin and its adjacent stroma are inked green. ??The ectocervical margin and its adjacent stroma are inked yellow. ??The specimen is serially perpendicular sectioned and submitted sequentially starting from 12 00 in cassettes A1-A5. B) Received in formalin, labeled with the patient's identification, and designated endocervical curettings is a specimen consisting of scanty minute, red, fibrillary, soft tissue. ??The entire specimen is filtered through a nylon bag to yield approximately 0.5 x 0.2 x <0.1 cm in aggregate. ??Submitted entirely in cassette B1. HC/lw GROSSED BY ? DILIA FARAH M.D. *MICROSCOPIC EXAM ? There is a small focus of high grade squamous dysplasia (YANELI III) (slide A2). ??Dysplasia appears to involve an endocervical crypt. ??This focus is close to, but not at inked margin of endocervical resection. ??Other regions show variable degrees of chronic inflammatory infiltrates, mucosal epithelial reparative and metaplastic changes. ??The sections of endocervical curettage show scanty tissue consisting primarily of stroma with rare atrophic glands. ??Evidence of dysplasia is not seen. READ BY ?DILIA FARAH M.D. DIAGNOSIS ? A) CERVIX, 12 00 POSTERIOR , CONE BIOPSY ? -SMALL FOCUS OF CERVICAL INTRAEPITHELIAL NEOPLASIA, ?YANELI III (OF III), WITH INVOLVEMENT OF ENDOCERVICAL CRYPT, ?CLOSE TO, BUT NOT AT THE ENDOCERVICAL MARGIN OF RESECTION. ? -ECTOCERVICAL MARGIN IS FREE OF DYSPLASIA. ? -MUCOSAL EROSION, CHRONIC INFLAMMATION, REPARATIVE AND METAPLASTIC ?EPITHELIAL CHANGES. B) ENDOCERVIX, CURETTAGE ? -SCANTY BENIGN ENDOCERVICAL STROMA WITH RARE ATROPHIC GLANDS. ? -NO EVIDENCE OF DYSPLASIA OR MALIGNANCY. RELEASED BY ?DILIA FARAH MISCELLANEOUS SAMPLES / Unknown 09/14/2007 9:40 AM CDT 09/14/2007 11:41 AM CDT Historical Provider LAB - PATHOLOGY/C YTOLOGY ORDERABLES Care Teams Prison Warden Relationship Specialty Start Date End Date Christianne Ramirez DO PCP - General Family Medicine 08/23/12
[2024-06-07 15:42] LABS: Basophils Percent Auto 0.8 % (0.2-1.2); Eosinophils Absolute Auto 0.2 K/mm3 (0-0.3); Eosinophils Percent Auto 3.1 % (0-4.4); Hematocrit 41.2 % (37.0-47.0); Hemoglobin 13.2 g/dL (12.0-15.0); Immature Granulocyte Absolute 0.01 K/mm3 (0.00-0.031); Immature Granulocyte Percent A 0.2 % (0-0.5); Lymphocytes Percent Auto 37.3 % (18.3-44.2); Mean Corpuscular Hemoglobin 26.3 pg (26-34); Mean Corpuscular Volume 82.2 fl (80-100); Monocytes Absolute Auto 0.4 K/mm3 (0.1-0.6); Monocytes Percent Auto 8.5 % (2.6-8.5); Neutrophils Absolute Auto 2.4 K/mm3 (1.3-6.7); Neutrophils Percent Auto 50.1 % (45.5-73.1); Platelet Count Result 206 k/mm3 (150-375); Red Blood Count 5.01 M/mm3 (4.2-5.4); Red Cell Distribution Width 13.8 % (11.5-14.5); White Blood Count 4.8 K/mm3 (4.5-10.0)
[2024-06-07 15:54] LABS: Alanine Aminotransferase 18 U/L (6-35); Albumin Level 4.3 g/dL (3.5-5.1); Alkaline Phosphatase 78 U/L (38-126); Anion Gap 8 mmol/L (4-12); Aspartate Amino Transferase 21 U/L (14-36); Bilirubin,Total 0.4 mg/dL (0.2-1.3); Blood Urea Nitrogen 18 mg/dL (7-17); Calcium 9.7 mg/dL (8.4-10.2); Carbon Dioxide 24 mmol/L (22-30); Chloride 103 mmol/L (98-107); Estimated CRCL calculation 97 ml/min; Estimated Glomerular Filt Rate > 60; Glucose 136 mg/dL (65-110); INR 0.9; Partial Thromboplastin Time 26.4 Seconds (22.3-36.8); Potassium 3.7 mmol/L (3.4-5.0); Prothrombin Time 12.9 Seconds (11.1-14.7); Sodium 135 mmol/L (137-145)
[2024-06-07 16:06] LABS: Troponin I < 0.012 ng/mL (0.000-0.034)
[2024-06-07 16:22] LABS: Influenza A QL RT-PCR Negative (Negative); Influenza B QL RT-PCR Negative (Negative); RSV RNA, RT-PCR Negative (Negative); SARS-CoV-2 RNA PCR Negative (Negative)
[2024-06-07] MEDS: ONDANSETRON HCL ODT 4 MG TABLET PO (17:50)
--- OUTSIDE RECORDS SUMMARY | 2024-06-07 18:02 | XMS_ITS | Clinical Summary ---
Author Organization [facility] [employer] Address [address] [place] [address] Care Team Providers Care Tape Edge Machine Operator Name Role Phone Christianne Ramirez Primary Care Provider [phone] Source Comments [facility] [employer],non-owned Affiliates and Associated Physician Practices is amultiple site organization consisting of ambulatory clinics and hospital sitesin [place], [place], [place] and [place]. This disclosure is being madepursuant to the Care Everywhere program and may not contain all information available regarding this patient. Last updated 18.[facility] [employer] Allergies No known active allergies Medications * [...] 98 02/27/2015 3:30 PM CDT Temperature 37.1 C (98.7 F) 02/27/2015 3:30 PM CDT Respiratory Rate 20 02/27/2015 3:30 PM CDT [...] Td or Tdap) 08/16/2020 08/16/2010 COVID-19 VACCINE (1 - 2023- season) 2024 INFLUENZA VACCINE (#1) [...] - 107 mmol/L 02/27/2015 6:59 PM CDT [facility] CO2 21(L) 22 - 29 mmol/L 02/27/2015 6:[address] [facility] Calcium 10.06 8.4 - 10.2 mg/dL 02/27/2015 6:[address] [facility] Anion Gap 14 10 - 20 mmol/L 02/27/2015 6:[address] [facility] BUN 16.4 9.8 - 20.1 mg/dL 02/27/2015 6:[address] [facility] Creatinine 0.71 0.57 - 1.11 mg/dL 02/27/2015 6:[address] [facility] eGFR by MDRD >60 >60 mL/min/1.7 3m2 02/27/2015 6:59 PM CDT [facility] eGFR by MDRD >60 >60 mL/min/1.7 3m2 02/27/2015 6:[address] [facility] Alkaline Phosphatase 71 40 - 150 U/L 02/27/2015 6:[address] [facility] ALT 15 5 - 55 U/L 02/27/2015 6:[address] [facility] AST 14 5 - 34 U/L 02/27/2015 6:[address] [facility] Protein Total 7.7 6.4 - 8.3 gm/dL 02/27/2015 6:[address] [facility] Albumin 4.1 3.5 - 5.0 gm/dL 02/27/2015 6:[address] [facility] Globulin Total 3.6 2.6 - 4.0 gm/dL 02/27/2015 6:[address] [facility] Albumin/Globulin Ratio 1.1 0.9 - 1.6 02/27/2015 6:[address] [facility] Bilirubin Total 0.3 0.2 - 1.2 mg/dL 02/27/2015 6:[address] [facility] Blood BLOOD SPECIMEN / Unknown 02/27/2015 6:25 PM CDT 02/27/2015 6:35 PM CDT Katey Yin LAND LAW EXAMINER-BILINGUAL SPEECH LANGUAGE PATHOLOGIST LAB - CHEMI STRY ORDERABLES [facility] [address] [place] [address], [facility] * MICROALBUMIN URINE RANDOM (08/29/2012 10:21 AM CDT) Microalbumin Urine 1.4 0.0 - 17.0 ug/mL [facility] ACCOUNT BILL Urine specimen (specimen) URINE / Unknown 08/29/2012 10:21 AM CDT 08/29/2012 6:55 PM CDT Narrative Resulting Agency Comment [facility] [address] [id number] Christianne Ramirez DO LAB - URINE CHEMISTR Y ORDERABLES [facility] ACCOUNT BILL from Last 3 Months or Most Recently Relevant to Health Maintenance Care Teams Tape Edge Machine Operator Relationship Specialty Start Date End Date Christianne Ramirez DO PCP - General Family Medicine 08/23/12
--- OUTSIDE RECORDS SUMMARY | 2024-06-07 18:02 | XMS_ITS | Referral Summary ---
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 Gender Identity Not on file Sexual Orientation Not on file Last Filed Vital Signs Vital Sign Reading Time Taken Comments Blood Pressure 159/81 03/01/2022 6:43 PM CDT Pulse 74 03/01/2022 6:43 PM CDT Temperature 36.9 C (98.4 F) 03/01/2022 6:43 PM CDT Respiratory Rate 18 03/01/2022 6:43 PM CDT Oxygen Saturation 97% 03/01/2022 6:43 PM CDT Inhaled Oxygen Concentration - - Weight 108.5 kg (239 lb 3.2 oz) 03/01/2022 2:48 PM CDT Height 170.2 cm (5' 7 ) 03/01/2022 2:48 PM CDT Body Mass Index 37.46 03/01/2022 2:48 PM CDT Plan of Treatment Not on file Insurance [facility] Care Teams Speech And Hearing Director Relationship Specialty Start Date End Date Sincere Zuñiga MD [address] [place] [address] [place] [address] PCP - General Family Medicine 08/19/21
--- OUTSIDE RECORDS SUMMARY | 2024-06-07 18:02 | XMS_ITS | Data Portability ---
Author Organization [place] [facility] [place], Main Office Address [address] [place] [address] Care Team Providers Care Alteration Worker Name Role Phone SINCERE ZUÑIGA Primary Care Provider [phone] Assessment Encounter Date Assessment Date Assessment LastModified by Organization Details LastModified Time 09/22/2023 09/22/2023 63 yo F with - RT CERUMEN IMPACTION; s/p flushing - GOUT - HLD, uncontrolled - HTG - HTN, Improved - PRE-DM, Improved - LT SHOULDER PAIN, chronic - LT ABDOMINAL CYST; resolved - SKIN LESIONS, chronic - OBESITY II - EX-SMOKER - H/O VIT D DEFICIENCY - H/O LEUKOPENIA HbA1C: 6.1(07/30/20) - 6.0(10/29/20) - 5.9(02/21/21) - 5.6(08/25/21) - 5.8(09/24/22) - 5.6(09/02/23) Annual labs: 09/02/23. Annual labs: 09/24/22. Annual labs: 08/25/21. CT chest & abdo with: 08/19/21. Annual labs: 07/30/20. Wt: 228(08/12/20) - 226(09/09/20) - 225(10/07/20) - 220(11/05/20) - 223(12/03/20) [Stop] D/w pt in detail about her conditions, recent labs and further plan of care. Meds as directed. Risks Vs benefits for Aspirin 81mg po daily with food explained. Pt agreed. Diet and exercise explained in detail. Educated pt about different options for wt loss. BP diary education given and call us if any concerns. Cont f/u with Derm as per schedule. Cont f/u with Gyne as per schedule. Cont f/u with Ophtho as per schedule. Pt has done PT in the past. Advised to refer to Surg; but pt declined. Advised to refer to Hemat; but pt declined. HM: WWE - 11/22, normal as per pt. Cont f/u with Gyne as per schedule. Mammo - 01/14/22, normal. Ordered. Colonoscopy - Never. Cologuard done in 12/20, normal as per pt. Referred to GI. DEXA - 07/30/20, normal. Ordered. Flu - Pt declined. Tdap, Pneumo, Shingrix - At HD. F/u in 3 months. Lipids, CBC in 12/24. Annual labs in 09/24. Not available 09/22/2023 14:27:05 12/23/2023 12/23/2023 63 yo F with - LEUKOPENIA, new - HLD, uncontrolled - HTG - GOUT - HTN, Improved - PRE-DM, Improved (diet controlled) - LT SHOULDER PAIN, chronic - SKIN LESIONS, chronic - OBESITY II - EX-SMOKER - H/O VIT D DEFICIENCY HbA1C: 6.1(07/30/20) - 6.0(10/29/20) - 5.9(02/21/21) - 5.6(08/25/21) - 5.8(09/24/22) - 5.6(09/02/23) Annual labs: 09/02/23. Annual labs: 09/24/22. Annual labs: 08/25/21. CT chest & abdo with: 08/19/21. Annual labs: 07/30/20. Wt: 228(08/12/20) - 226(09/09/20) - 225(10/07/20) - 220(11/05/20) - 223(12/03/20) [Stop] D/w pt in detail about her conditions, recent labs and further plan of care. All meds verified with pt. Meds as directed. Risks Vs benefits for Aspirin 81mg po daily with food explained. Pt agreed. Diet and exercise explained in detail. Educated pt about different options for wt loss. BP diary education given and call us if any concerns. Cont f/u with Derm as per schedule. Cont f/u with Gyne as per schedule. Cont f/u with Ophtho as per schedule. Pt has done PT in the past. Advised to refer to Surg; but pt declined. Advised to refer to Hemat; but pt declined. HM: WWE - 11/22, normal as per pt. Cont f/u with Gyne as per schedule. Mammo - 01/14/22, normal. Ordered. Colonoscopy - 11/24/23, normal as per pt. Cont f/u with GI as per schedule. DEXA - 07/30/20, normal. Ordered. Flu - Pt declined. Tdap, Pneumo, Shingrix - At HD. F/u in 3 months. Lipids, CBC in 03/26. Annual labs in 09/24. [email or web address] Not available 12/23/2023 10:11:08 05/10/2024 05/10/2024 63 yo F with - HLD, uncontrolled - HTG, uncontrolled - LEUKOPENIA, chronic - GOUT - HTN, Improved - PRE-DM, Improved (diet controlled) - LT SHOULDER PAIN, chronic - SKIN LESIONS, chronic - OBESITY I - EX-SMOKER - H/O VIT D DEFICIENCY HbA1C: 6.1(07/30/20) - 6.0(10/29/20) - 5.9(02/21/21) - 5.6(08/25/21) - 5.8(09/24/22) - 5.6(09/02/23) Annual labs: 09/02/23. Annual labs: 09/24/22. Annual labs: 08/25/21. CT chest & abdo with: 08/19/21. Annual labs: 07/30/20. Wt: 228(08/12/20) - 226(09/09/20) - 225(10/07/20) - 220(11/05/20) - 223(12/03/20) [Stop] D/w pt in detail about her conditions, recent labs and further plan of care. Pt declined for any dose change at this time. All meds verified with pt. Meds as directed. Risks Vs benefits for Aspirin 81mg po daily with food explained. Pt agreed. Diet and exercise explained in detail. Educated pt about different options for wt loss. BP diary education given and call us if any concerns. Cont f/u with Derm as per schedule. Cont f/u with Gyne as per schedule. Cont f/u with Ophtho as per schedule. Pt has done PT in the past. Advised to refer to Hemat; but pt declined. HM: WWE - 11/22, normal as per pt. Cont f/u with Gyne as per schedule. Mammo - 01/14/22, normal. Ordered. Colonoscopy - 11/24/23, normal as per pt. Cont f/u with GI as per schedule. DEXA - 07/30/20, normal. Ordered. Flu - Pt declined. Tdap, Pneumo, Shingrix - At HD. F/u in 3-4 months. Annual labs in 09/24. [email or web address] Not available 05/10/2024 12:36:26 Plan of Treatment Reminders Order Date Submit Date Provider Last Modified By Organization Details Last Modified Time Details Appointments Physical/ Annual Wellness 30 2024 09:30A Vic Zuñiga MD Not available Not available Not available Lab CBC w/ auto diff [address] (Lab), [address] [place], [address], 12/13/2023 08:03:49 lipid panel, serum [address] (Lab), [address] [place], [address], 12/13/2023 08:03:49 CBC w/ auto diff [address] (Lab), [address] [place], [address], 03/22/2024 08:40:40 lipid panel, serum [address] (Lab), [address] [place], [address], 03/22/2024 08:40:40 Referral None recorded. Procedures colonosco py screening (PROC) 2023 [facility] (Pre-Screen), [address] [place], [address], 11/25/2023 08:48:16 Surgeries None recorded. Imaging None recorded. Medication Orders atorvasta tin 20 mg tablet 2023 [facility] #[id number], [address] [place] [address], [id number], 09/22/2023 14:19:30 Adult Low Dose Aspirin 81 mg tablet,de layed release 2023 024 [facility] #10313, [address] [place] [address], [id number], 09/22/2023 14:28:32 Golytely 236 gram-22.7 4 gram-6.74 gram-5.86 gram oral solution 2023 024 [email or web address] [facility] #13071, [address] [place] [address], [id number], 12/23/2023 10:01:28 hydrochlo rothiazid e 12.5 mg tablet 2023 024 [facility] #24322, [address] [place] [address], [id number], 12/23/2023 10:03:00 atorvasta tin 20 mg tablet 2023 024 [facility] #81176, [address] [place] [address], [id number], 12/23/2023 10:03:04 Adult Low Dose Aspirin 81 mg tablet,de layed release 2023 024 [facility] #94240, [address] [place] [address], [id number], 12/23/2023 10:03:00 lisinopri l 20 mg tablet 2023 024 [facility] #37605, [address] [place] [address], [id number], 12/23/2023 10:03:00 hydrochlo rothiazid e 12.5 mg tablet 2024 025 [facility] #34388, [address] [place] [address], [id number], 05/10/2024 12:31:25 lisinopri l 20 mg tablet 2024 025 [email or web address] [facility] #15493, [address] [place] [address], [id number], 05/10/2024 12:33:19 atorvasta tin 20 mg tablet 2024 025 [facility] #16829, [address] [place] [address], [id number], 05/10/2024 12:31:27 Adult Low Dose Aspirin 81 mg tablet,de layed release 2024 025 [facility] #[id number], [address] [place] [address], [id number], 05/10/2024 12:31:25 Patient TargetsNo targets recorded. Patient Instructions Encounter Date Encounter Id Patient Instructions Last Modified By Organization Details Last Modified Time 09/29/2023 [id number] SAMANTHA Not available 14:28:30 PT NEEDS A SCREENING COLON . R/O POLYP . RECOMMEND A COLONOSOPY RISKS BENEFITS AND COMPLICATIONS WERE EXPLAINED TO PT . ( BLEEDING , PERFORATION , INFECTION , ) PT VERBALIZES UNDERSTANDING AND IS WILLING TO PROCEDE . [email or web address] Not available 09/29/2023 14:28:38 05/10/2024 [id number] starting a weigh t loss plan: care instructions [email or web address] Not available 05/10/2024 12:37:05 high blood pressure: care instructions Not available 05/10/2024 12:37:14 Reason for Referral None Reported. Results Created Date Observation Date Name Description Value Unit Range Abnormal Flag Note LastModifiedBy Organization Detail LastModifiedTime 09/02/19 24 09/02/2023 URINA LYSIS COMPL ETE/I RIS W/RFX color LIGHT- YELLOW Not Available [facility] (Lab) [address] [place], [address], 09/02/2023 13:54:40 09/02/19 24 09/02/2023 URINA LYSIS COMPL ETE/I RIS W/RFX appear CLEAR Not Available [facility] (Lab) [address] [place], [address], 09/02/2023 13:54:40 09/02/19 24 09/02/2023 URINA LYSIS COMPL ETE/I RIS W/RFX specific gravity 1.012 1.001- 1.030 Not Available [facility] (Lab) [address] [place], [address], 09/02/2023 13:54:40 09/02/19 24 09/02/2023 URINA LYSIS COMPL ETE/I RIS W/RFX pH 5.5 pH_un its 5.0-9. 0 Not Available [facility] (Lab) [address] [place], [address], 09/02/2023 13:54:40 09/02/19 24 09/02/2023 URINA LYSIS COMPL ETE/I RIS W/RFX leukocytes NEGATI VE andrew/u L negati ve- Not Available [facility] (Lab) [address] [place], [address], 09/02/2023 13:54:40 09/02/19 24 09/02/2023 URINA LYSIS COMPL ETE/I RIS W/RFX nitrite NEGATI VE negati ve- Not Available [facility] (Lab) [address] [place], [address], 09/02/2023 13:54:40 09/02/19 24 09/02/2023 URINA LYSIS COMPL ETE/I RIS W/RFX protein NEGATI VE mg/dL negati ve- Not Available [facility] (Lab) [address] [place], [address], 09/02/2023 13:54:40 09/02/19 24 09/02/2023 URINA LYSIS COMPL ETE/I RIS W/RFX glucose NORMAL mg/dL normal - Not Available [facility] (Lab) [address] [facility] [place], [address], 09/02/2023 13:54:40 09/02/19 24 09/02/2023 URINA LYSIS COMPL ETE/I RIS W/RFX ketones NEGATI VE mg/dL negati ve- Not Available [facility] (Lab) [address] [place], [address], 09/02/2023 13:54:40 09/02/19 24 09/02/2023 URINA LYSIS COMPL ETE/I RIS W/RFX urobilinogen NORMAL mg/dL normal - Not Available [facility] (Lab) [address] [place], [address], 09/02/2023 13:54:40 09/02/19 24 09/02/2023 URINA LYSIS COMPL ETE/I RIS W/RFX bilirubin NEGATI VE mg/dL negati ve- Not Available [facility] (Lab) [address] [place], [address], 09/02/2023 13:54:40 09/02/19 24 09/02/2023 URINA LYSIS COMPL ETE/I RIS W/RFX blood NEGATI VE mg/dL negati ve- Not Available [facility] (Lab) [address] [place], [address], 09/02/2023 13:54:40 09/02/19 24 09/02/2023 URINA LYSIS COMPL ETE/I RIS W/RFX white blood cells 0-8 /i??h pfi?? 0-8 Not Available [facility] (Lab) [address] [place], [address], 09/02/2023 13:54:40 09/02/19 24 09/02/2023 URINA LYSIS COMPL ETE/I RIS W/RFX red blood cells 0-4 /i??h pfi?? 0-4 Not Available [facility] (Lab) [address] [place], [address], 09/02/2023 13:54:40 09/02/19 24 09/02/2023 URINA LYSIS COMPL ETE/I RIS W/RFX bacteria NONE Not Available [facility] (Lab) [address] [place], [address], 09/02/2023 13:54:40 09/02/19 24 09/02/2023 URINA LYSIS COMPL ETE/I RIS W/RFX mucous OCCASI ONAL /i??l pfi?? abnormal Not Available [facility] (Lab) [address] [place], [address], 09/02/2023 13:54:40 09/02/19 24 09/02/2023 URINA LYSIS COMPL ETE/I RIS W/RFX squamous epithelial OCCASI ONAL /i??l pfi?? abnormal Not Available [facility] (Lab) [address] [place], [address], 09/02/2023 13:54:40 09/02/19 24 09/02/2023 URINA LYSIS COMPL ETE/I RIS W/RFX hyaline cast OCCASI ONAL /i??l pfi?? none seen- abnormal Not Available [facility] (Lab) [address] [place], [address], 09/02/2023 13:54:40 09/02/19 24 09/02/2023 COMPR EHENS CUCA METAB OLIC PANEL sodium 139 mmol/ L 137-14 5 Not Available [facility] (Lab) [address] [place], [address], 09/02/2023 14:16:05 09/02/19 24 09/02/2023 COMPR EHENS CUCA METAB OLIC PANEL potassium 4.5 mmol/ L 3.5-5. 1 Not Available [facility] (Lab) [address] [place], [address], 09/02/2023 14:16:05 09/02/19 24 09/02/2023 COMPR EHENS CUCA METAB OLIC PANEL chloride 107 mmol/ L 98-107 Not Available [facility] (Lab) [address] [place], [address], 09/02/2023 14:16:05 09/02/19 24 09/02/2023 COMPR EHENS CUCA METAB OLIC PANEL carbon dioxide 23 mmol/ L 22-30 Not Available [facility] (Lab) [address] [place], [address], 09/02/2023 14:16:05 09/02/19 24 09/02/2023 COMPR EHENS CUCA METAB OLIC PANEL anion gap 13.5 mmol/ L 14-22 low Not Available [facility] (Lab) [address] [place], [address], 09/02/2023 14:16:05 09/02/19 24 09/02/2023 COMPR EHENS CUCA METAB OLIC PANEL glucose 100 mg/dL 70-99 high Not Available [facility] (Lab) [address] [place], [address], 09/02/2023 14:16:05 09/02/19 24 09/02/2023 COMPR EHENS CUCA METAB OLIC PANEL BUN 18 mg/dL 8-19 Not Available [facility] (Lab) [address] [place], [address], 09/02/2023 14:16:09/02/19 24 09/02/2023 COMPR EHENS CUCA METAB OLIC PANEL creatinine 0.64 mg/dL 0.66-1 .25 low Not Available [facility] (Lab) [address] [place], [address], 09/02/2023 14:16:09/02/19 24 09/02/2023 COMPR EHENS CUAC METAB OLIC PANEL GFR >60 Refer ence Range : [place] [facility] GFR Healt hy Adult : >60 mL/mi n/1.7 3 m2 Chron ic Kidne y Disea se: 15-60 mL/mi n/1.7 3 m2 Kidne y Failu re: <15/m L/min /1.73 m2 www.n iddk. nih.g ov The MDRD study equat ion has not been valid ated in child yinka <18 years of age; pregn ant women ; the elder ly >85 years of age; or in some racia l or ethni c subgr oups, such as Hispa nics. Outsi de the valid ated anya eters , estim ated GFR is less accur ate, requi ring clini nneka judgm ent on a case- by-ca se basis . Clini nneka inter preta tion for other races and ages must be made by the clini serenity. The MDRD study equat ion has not been valid ated for the evalu ation of serum creat inine relat ed to nutri anatoliy l statu s or medic ation usage . For perso ns <18 years of age, a pedia tric GFR calcu lator is avail able on the NKF websi te: https :[email or web address] kelley.marjorie lara/pr patricia zhangal s/kdo qi/gf r_cal culat or Not Available [facility] (Lab) [address] [place], [address], 09/02/2023 14:16:05 09/02/19 24 09/02/2023 COMPR EHENS CUCA METAB OLIC PANEL alkaline phosphatase 77 U/L 38-126 Not Available [facility] (Lab) [address] [place], [address], 09/02/2023 14:16:05 09/02/19 24 09/02/2023 COMPR EHENS CUCA METAB OLIC PANEL alanine aminotransfe rase 20 U/L 0-35 Not Available [facility] (Lab) [address] [place], [address], 09/02/2023 14:16:05 09/02/19 24 09/02/2023 COMPR EHENS CUCA METAB OLIC PANEL aspartate aminotransfe rase 25 U/L 15-37 Not Available [facility] (Lab) [address] [place], [address], 09/02/2023 14:16:05 09/02/19 24 09/02/2023 COMPR EHENS CUCA METAB OLIC PANEL bilirubin, total 0.50 mg/dL 0.20-1 .30 Not Available [facility] (Lab) [address] [place], [address], 09/02/2023 14:16:05 09/02/19 24 09/02/2023 COMPR EHENS CUCA METAB OLIC PANEL calcium 9.8 mg/dL 8.4-10 .2 Not Available [facility] (Lab) [address] [place], [address], 09/02/2023 14:16:05 09/02/19 24 09/02/2023 COMPR EHENS CUCA METAB OLIC PANEL total protein 7.5 g/dL 6.3-8. 2 Not Available [facility] (Lab) [address] [place], [address], 09/02/2023 14:16:05 09/02/19 24 09/02/2023 COMPR EHENS CUCA METAB OLIC PANEL albumin 4.5 g/dL 3.4-5. 0 Not Available [facility] (Lab) [address] [place], [address], 09/02/2023 14:16:05 09/02/19 24 09/02/2023 COMPR EHENS CUCA METAB OLIC PANEL globulin 3.0 g/dL 2.6-4. 2 Not Available [facility] (Lab) [address] [place], [address], 09/02/2023 14:16:05 09/02/19 24 09/02/2023 COMPR EHENS CUCA METAB OLIC PANEL A/G ratio 1.5 ratio 1.0-2. 0 Not Available [facility] (Lab) [address] [place], [address], 09/02/2023 14:16:05 09/02/19 24 09/02/2023 LIPID PANEL cholesterol 249 mg/dL 140-19 9 high NIH TACHO NSUS RECOM MENDA TION FOR ALVARADO STERO L: ADULT CHILD LOW RISK: <200 <170 BORDE RLINE : <200- 239 ----- HIGH RISK: >240 >200 Not Available [facility] (Lab) [address] [place], [address], 09/02/2023 14:16:10 09/02/19 24 09/02/2023 LIPID PANEL triglyceride s 141 mg/dL 0-150 NIH TACHO NSUS REPOR T RECOM MENDA TION FOR TRIGL YCERI JUSTICE: ADULT CHILD LOW RISK: <150 ----- BODER LINE: 150-1 99 ----- HIGH RISK: >200 ----- Not Available [facility] (Lab) [address] [place], [address], 09/02/2023 14:16:10 09/02/19 24 09/02/2023 LIPID PANEL HDL cholesterol 72 mg/dL 40- Not Available [facility] (Lab) [address] [place], [address], 09/02/2023 14:16:10 09/02/19 24 09/02/2023 LIPID PANEL LDL cholesterol, calculated 149 mg/dL 0-130 high NIH TACHO NSUS REPOR T RECOM MENDA TIONS FOR LDL: ADULT CHILD LOW RISK <130 <110 (OPTI MAL LDL) <100 ----- BORDE RLINE : 130-1 59 ----- HIGH RISK: >160 >130 A TRIGL YCERI DE RESUL T >400 INVAL IDATE S THE CALCU LATIO N FOR LDL FRACT IONAT ION - THE LDL RESUL T WILL NOT BE REPOR DAMASO. Not Available [facility] (Lab) [address] [place], [address], 09/02/2023 14:16:10 09/02/19 24 09/02/2023 URIC ACID SERUM uric acid 5.9 mg/dL 2.5-6. 2 Not Available [facility] (Lab) [address] [place], [address], 09/02/2023 14:16:14 09/02/19 24 09/02/2023 VITAM IN D 25-HY DROXY [id number] 33.0 NG/mL 30-100 Vitam in D Statu s: Defic ient: <20 ng/mL Insuf ficie nt: 20-29 ng/mL Suffi cient : 30-10 0 ng/mL Not Available [facility] (Lab) [address] [place], [address], 09/02/2023 14:30:33 09/02/19 24 09/02/2023 CBC/C OMPLE TE BLD COUNT W/DIF F white blood cells 3.8 x10'3 /uL 4.2-10 .8 low Not Available [facility] (Lab) [address] [place], [address], 09/02/2023 14:36:52 09/02/19 24 09/02/2023 CBC/C OMPLE TE BLD COUNT W/DIF F red blood cells 5.18 x10'6 /uL 3.80-5 .20 Not Available [facility] (Lab) [address] [place], [address], 09/02/2023 14:36:52 09/02/19 24 09/02/2023 CBC/C OMPLE TE BLD COUNT W/DIF F hemoglobin 13.6 g/dL 12.0-1 5.6 Not Available [facility] (Lab) [address] [place], [address], 09/02/2023 14:36:52 09/02/19 24 09/02/2023 CBC/C OMPLE TE BLD COUNT W/DIF F hematocrit 42.3 % 35.7-4 5.7 Not Available [facility] (Lab) [address] [place], [address], 09/02/2023 14:36:52 09/02/19 24 09/02/2023 CBC/C OMPLE TE BLD COUNT W/DIF F mean red cell volume 81.7 fL 82.0-9 9.0 low Not Available [facility] (Lab) [address] [place], [address], 09/02/2023 14:36:52 09/02/19 24 09/02/2023 CBC/C OMPLE TE BLD COUNT W/DIF F mean red cell hemoglobin 26.3 pg 27.0-3 3.0 low Not Available [facility] (Lab) [address] [place], [address], 09/02/2023 14:36:52 09/02/19 24 09/02/2023 CBC/C OMPLE TE BLD COUNT W/DIF F mean RBC HGB concentratio n 32.2 g/dL 31.0-3 6.0 Not Available [facility] (Lab) [address] [place], [address], 09/02/2023 14:36:52 05/02/09/02/2023 CBC/C OMPLE TE BLD COUNT W/DIF F red cell distribution width 14.1 % 11.8-1 5.5 Not Available [facility] (Lab) [address] [place], [address], 09/02/2023 14:36:52 09/02/19 24 09/02/2023 CBC/C OMPLE TE BLD COUNT W/DIF F platelets 202 x10'3 /uL 150-40 0 Not Available [facility] (Lab) [address] [place], [address], 09/02/2023 14:36:52 09/02/19 24 09/02/2023 CBC/C OMPLE TE BLD COUNT W/DIF F mean platelet volume 11.8 fL 9.0-12 .4 Not Available [facility] (Lab) [address] [place], [address], 09/02/2023 14:36:52 09/02/19 24 09/02/2023 CBC/C OMPLE TE BLD COUNT W/DIF F neutrophils 44.3 % 39.0-7 2.0 Not Available [facility] (Lab) [address] [place], [address], 09/02/2023 14:36:52 09/02/19 24 09/02/2023 CBC/C OMPLE TE BLD COUNT W/DIF F lymphocytes 39.8 % 16.0-4 7.0 Not Available [facility] (Lab) [address] [place], [address], 09/02/2023 14:36:52 09/02/19 24 09/02/2023 CBC/C OMPLE TE BLD COUNT W/DIF F monocytes 11.2 % 5.0-12 .0 Not Available [facility] (Lab) [address] [place], [address], 09/02/2023 14:36:52 09/02/19 24 09/02/2023 CBC/C OMPLE TE BLD COUNT W/DIF F eosinophils 3.6 % 1.0-7. 0 Not Available [facility] (Lab) [address] [place], [address], 09/02/2023 14:36:52 09/02/19 24 09/02/2023 CBC/C OMPLE TE BLD COUNT W/DIF F basophils 0.8 % 0.0-2. 0 Not Available [facility] (Lab) [address] [place], [address], 09/02/2023 14:36:52 09/02/19 24 09/02/2023 CBC/C OMPLE TE BLD COUNT W/DIF F immature granulocytes 0.3 % 0.00-0 .50 Not Available [facility] (Lab) [address] [place], [address], 09/02/2023 14:36:52 09/02/19 24 09/02/2023 CBC/C OMPLE TE BLD COUNT W/DIF F neutrophils, absolute count 1.70 x10'3 /uL 1.5-8. 0 Not Available [facility] (Lab) [address] [place], [address], 09/02/2023 14:36:52 09/02/19 24 09/02/2023 CBC/C OMPLE TE BLD COUNT W/DIF F lymphocytes, absolute count 1.53 x10'3 /uL 1.07-3 .43 Not Available [facility] (Lab) [address] [place], [address], 09/02/2023 14:36:52 09/02/19 24 09/02/2023 CBC/C OMPLE TE BLD COUNT W/DIF F monocytes, absolute count 0.43 x10'3 /uL 0.29-0 .99 Not Available [facility] (Lab) [address] [place], [address], 09/02/2023 14:36:52 09/02/19 24 09/02/2023 CBC/C OMPLE TE BLD COUNT W/DIF F eosinophils, absolute count 0.14 x10'3 /uL 0.02-0 .53 Not Available [facility] (Lab) [address] [place], [address], 09/02/2023 14:36:52 09/02/19 24 09/02/2023 CBC/C OMPLE TE BLD COUNT W/DIF F basophils, absolute count 0.03 x10'3 /uL 0.01-0 .08 Not Available [facility] (Lab) [address] [place], [address], 09/02/2023 14:36:52 09/02/19 24 09/02/2023 CBC/C OMPLE TE BLD COUNT W/DIF F immature granulocytes ,absolute 0.01 x10'3 /uL 0.00-0 .05 Not Available [facility] (Lab) [address] [place], [address], 09/02/2023 14:36:52 09/02/19 24 09/02/2023 CBC/C OMPLE TE BLD COUNT W/DIF F nucleated red blood cells 0.0 % -0 Not Available [facility] (Lab) [address] [place], [address], 09/02/2023 14:36:52 09/02/19 24 09/02/2023 CBC/C OMPLE TE BLD COUNT W/DIF F NRBC# 0.00 x10'3 /uL Not Available [facility] (Lab) [address] [place], [address], 09/02/2023 14:36:52 09/02/19 24 09/02/2023 TSH W/REF DARINEL FT4 TSH with reflex free T4 0.988 uIU/m L 0.465- 4.680 Not Available [facility] (Lab) [address] [place], [address], 09/02/2023 14:54:57 09/02/19 24 09/02/2023 HEMOG LOBIN A1C HA1C 5.6 % 4.0-6. 0 Diabe sandor Shantanue fei Crite aneesh: <5.7% Consi stent with absen ce of diabe sandor 5.7-6 .4% Consi stent with incre ased risk for diabe sandor (pred iabet es) >OR=6 .5% Consi stent with diabe sandor REFER ENCE: Diabe sandor Care 2016, 39(Osorio ppl.1 ):s13 -s22 Not Available [facility] (Lab) [address] [place], [address], 09/02/2023 15:36:07 05/05/19 25 05/05/2024 CBC/C OMPLE TE BLD COUNT W/DIF F white blood cells 3.8 x10'3 /uL 4.2-10 .8 low Not Available [facility] (Lab) [address] [place], [address], 05/05/2024 12:43:05 05/05/19 25 05/05/2024 CBC/C OMPLE TE BLD COUNT W/DIF F red blood cells 5.13 x10'6 /uL 3.80-5 .20 Not Available [facility] (Lab) [address] [place], [address], 05/05/2024 12:43:05 05/05/19 25 05/05/2024 CBC/C OMPLE TE BLD COUNT W/DIF F hemoglobin 13.7 g/dL 12.0-1 5.6 Not Available [facility] (Lab) [address] [place], [address], 05/05/2024 12:43:05 05/05/19 25 05/05/2024 CBC/C OMPLE TE BLD COUNT W/DIF F hematocrit 42.6 % 35.7-4 5.7 Not Available [facility] (Lab) [address] [place], [address], 05/05/2024 12:43:05 05/05/19 25 05/05/2024 CBC/C OMPLE TE BLD COUNT W/DIF F mean red cell volume 83.0 fL 82.0-9 9.0 Not Available [facility] (Lab) [address] [place], [address], 05/05/2024 12:43:05 05/05/19 25 05/05/2024 CBC/C OMPLE TE BLD COUNT W/DIF F mean red cell hemoglobin 26.7 pg 27.0-3 3.0 low Not Available [facility] (Lab) [address] [place], [address], 05/05/2024 12:43:05 05/05/19 25 05/05/2024 CBC/C OMPLE TE BLD COUNT W/DIF F mean RBC HGB concentratio n 32.2 g/dL 31.0-3 6.0 Not Available [facility] (Lab) [address] [place], [address], 05/05/2024 12:43:05 05/05/19 25 05/05/2024 CBC/C OMPLE TE BLD COUNT W/DIF F red cell distribution width 13.7 % 11.8-1 5.5 Not Available [facility] (Lab) [address] [place], [address], 05/05/2024 12:43:05 05/05/19 25 05/05/2024 CBC/C OMPLE TE BLD COUNT W/DIF F platelets 194 x10'3 /uL 150-40 0 Not Available [facility] (Lab) [address] [place], [address], 05/05/2024 12:43:05 05/05/19 25 05/05/2024 CBC/C OMPLE TE BLD COUNT W/DIF F mean platelet volume 11.4 fL 9.0-12 .4 Not Available [facility] (Lab) [address] [place], [address], 05/05/2024 12:43:05 05/05/19 25 05/05/2024 CBC/C OMPLE TE BLD COUNT W/DIF F neutrophils 41.0 % 39.0-7 2.0 Not Available [facility] (Lab) [address] [place], [address], 05/05/2024 12:43:05 05/05/19 25 05/05/2024 CBC/C OMPLE TE BLD COUNT W/DIF F lymphocytes 44.6 % 16.0-4 7.0 Not Available [facility] (Lab) [address] [place], [address], 05/05/2024 12:43:05 05/05/19 25 05/05/2024 CBC/C OMPLE TE BLD COUNT W/DIF F monocytes 11.0 % 5.0-12 .0 Not Available [facility] (Lab) [address] [place], [address], 05/05/2024 12:43:05 05/05/19 25 05/05/2024 CBC/C OMPLE TE BLD COUNT W/DIF F eosinophils 2.6 % 1.0-7. 0 Not Available [facility] (Lab) [address] [place], [address], 05/05/2024 12:43:05 05/05/19 25 05/05/2024 CBC/C OMPLE TE BLD COUNT W/DIF F basophils 0.8 % 0.0-2. 0 Not Available [facility] (Lab) [address] [place], [address], 05/05/2024 12:43:05 05/05/19 25 05/05/2024 CBC/C OMPLE TE BLD COUNT W/DIF F immature granulocytes 0.0 % 0.00-0 .50 Not Available [facility] (Lab) [address] [place], [address], 05/05/2024 12:43:05 05/05/19 25 05/05/2024 CBC/C OMPLE TE BLD COUNT W/DIF F neutrophils, absolute count 1.57 x10'3 /uL 1.5-8. 0 Not Available [facility] (Lab) [address] [place], [address], 05/05/2024 12:43:05 05/05/19 25 05/05/2024 CBC/C OMPLE TE BLD COUNT W/DIF F lymphocytes, absolute count 1.71 x10'3 /uL 1.07-3 .43 Not Available [facility] (Lab) [address] [place], [address], 05/05/2024 12:43:05 05/05/19 25 05/05/2024 CBC/C OMPLE TE BLD COUNT W/DIF F monocytes, absolute count 0.42 x10'3 /uL 0.29-0 .99 Not Available [facility] (Lab) [address] [place], [address], 05/05/2024 12:43:05 05/05/19 25 05/05/2024 CBC/C OMPLE TE BLD COUNT W/DIF F eosinophils, absolute count 0.10 x10'3 /uL 0.02-0 .53 Not Available [facility] (Lab) [address] [place], [address], 05/05/2024 12:43:05 05/05/19 25 05/05/2024 CBC/C OMPLE TE BLD COUNT W/DIF F basophils, absolute count 0.03 x10'3 /uL 0.01-0 .08 Not Available [facility] (Lab) [address] [place], [address], 05/05/2024 12:43:05 05/05/19 25 05/05/2024 CBC/C OMPLE TE BLD COUNT W/DIF F immature granulocytes ,absolute 0.00 x10'3 /uL 0.00-0 .05 Not Available [facility] (Lab) [address] [place], [address], 05/05/2024 12:43:05 05/05/19 25 05/05/2024 CBC/C OMPLE TE BLD COUNT W/DIF F nucleated red blood cells 0.0 % -0 Not Available [facility] (Lab) [address] [place], [address], 05/05/2024 12:43:05 05/05/19 25 05/05/2024 CBC/C OMPLE TE BLD COUNT W/DIF F NRBC# 0.00 x10'3 /uL Not Available [facility] (Lab) [address] [place], [address], 05/05/2024 12:43:05 05/05/19 25 05/05/2024 LIPID PANEL cholesterol 261 mg/dL 140-19 9 high NIH TACHO NSUS RECOM MENDA TION FOR ALVARADO STERO L: ADULT CHILD LOW RISK: <200 <170 BORDE RLINE : <200- 239 ----- HIGH RISK: >240 >200 Not Available [facility] (Lab) [address] [place], [address], 05/05/2024 12:52:24 05/05/1905/05/2024 LIPID PANEL triglyceride s 171 mg/dL 0-150 high NIH TACHO NSUS REPOR T RECOM MENDA TION FOR TRIGL YCERI JUSTICE: ADULT CHILD LOW RISK: <150 ----- BODER LINE: 150-1 99 ----- HIGH RISK: >200 ----- Not Available [facility] (Lab) [address] [place], [address], 05/05/2024 12:52:24 05/05/19 25 05/05/2024 LIPID PANEL HDL cholesterol 67 mg/dL 40- Not Available [facility] (Lab) [address] [place], [address], 05/05/2024 12:52:24 05/05/19 25 05/05/2024 LIPID PANEL LDL cholesterol, calculated 160 mg/dL 0-130 high NIH TACHO NSUS REPOR T RECOM MENDA TIONS FOR LDL: ADULT CHILD LOW RISK <130 <110 (OPTI MAL LDL) <100 ----- BORDE RLINE : 130-1 59 ----- HIGH RISK: >160 >130 A TRIGL YCERI DE RESUL T >400 INVAL IDATE S THE CALCU LATIO N FOR LDL FRACT IONAT ION - THE LDL RESUL T WILL NOT BE REPOR DAMASO. Not Available [facility] (Lab) [address] [place], [address], 05/05/2024 12:52:24 06/07/19 25 06/07/2024 CT, brain , w/o contr ast No observ ation record ed. [address] [facility], [place], [address], 06/07/2024 17:53:19 06/07/19 25 06/07/2024 XR, chest , 2 view No observ ation record ed. [address], [place], [address], 06/07/2024 17:54:54 06/07/19 25 06/07/2024 XR, hip + pelvi s, unila teral No observ ation record ed. [address], [place], [address], 06/07/2024 17:55:57 Result Notes None recorded. Problems Name Problem SNOMED Code Status Onset Date Resolution Date Notes Provider Name and Address Organization Details Recorded Time Pain of left shoulder joint 62280158116 012219 Active 2021 Not Available [employer] 3 22:42:42 Vitamin D deficienc y 04639882 Active 2020 Not Available [facility] 3 22:42:42 Hypertens cuca disorder 34135728 Active 2017 Sincere Zuñiga MD [address], [place], [address] , [facility] [employer] [facility] 5 12:33:29 Abnormal blood pressure 88457348 Completed 202008/12/2020 Not Available [facility] 3 22:42:42 Obesity 938688683 Active 2020 Not Available [facility] 3 22:42:42 Cyst of abdomen 289931488 Active 2021 Not Available [facility] 3 22:42:42 Hyperlipi demia 92189259 Active 2020 Not Available [facility] 3 22:42:42 Prediabet es 877850935 Active 2020 Not Available [facility] 3 22:42:42 Leukopeni a 91547999 Active 2021 Not Available [facility] 3 22:42:42 Urinary tract infectiou s disease 52617928 Active 2022 Sincere Zuñiga MD [address] [address], [place], [address] , [facility] [employer] [facility] 3 10:02:09 Gouty arthropat hy 317737810 Active 2022 Sincere Zuñiga MD [address], [place], [address] , [facility] [employer] [facility] 3 16:54:52 Skin lesion 95303575 Active 2022 Sincere Zuñiga MD [address], [place], [address] , [facility] [employer] [facility] 3 16:59:14 Hypertrig lyceridem ia 314785628 Active 2022 Sincere Zuñiga MD [address], [place], [address] , [facility] [employer] [facility] 3 17:04:43 Impacted cerumen in right ear 38000668199 30192 Active 2023 Sincere Zuñiga MD [address], [place], [address] , [facility] [employer] [facility] [employer] [facility] 4 09:43:54 Ex-smoker 3258652 Active 2023 Sincere Zuñiga MD [address], [place], [address] , [facility] [employer] [facility] [employer] [facility] 4 09:54:16 Nontrauma tic perforati on of large intestine 413692177 Active 2023 JESSIKA Urbina [address] [address], [place], [address] , [facility] [employer] [facility] [employer] [facility] 4 11:21:55 Blurring of visual image 616122997 Active 2016 Sincere Zuñiga MD [address], [place], [address] , [facility] [employer] [facility] [employer] [facility] 5 12:33:28 Cataract 717858657 Active 2016 Sincere Zuñiga MD [address] [address], [place], [address] , [facility] [employer] [facility] [employer] [facility] 5 12:33:29 Disorder of intrauter ine contracep tive device 212133017 Active 2023 Sincere Zuñiga MD [address], [place], [address] , [facility] [employer] [facility] [employer] [facility] 5 12:33:29 Diverticu litis 336684516 Active MD [address], [place], [address] , [facility] [employer] [facility] 5 12:33:29 Pain of left wrist 47379449521 9102 Active 2012 Sincere Zuñiga MD [address], [place], [address] , [employer] 5 12:33:29 Dizziness 058113625 Active 2017 Sincere Zuñiga MD [address], [address] , [employer] 5 12:33:29 Anxiety 09558138 Active 2019 Sincere Zuñiga MD [address], [address] , [employer] 5 12:33:29 Atrophic vaginitis 51498803 Active 2015 Sincere Zuñiga MD [address], [address] , [employer] 5 12:33:29 Essential hypertens ion 60560232 Active 2012 Sincere Zuñiga MD [address], [address] , [employer] 5 12:33:29 Urgent desire to urinate 92612042 Active 2015 Sincere Zuñiga MD [address], [address] , [employer] 5 12:33:29 Sebaceous cyst of skin 138393065 Active 2015 Sincere Zuñiga MD [address], [address] , [employer] 5 12:33:29 Problem Notes None recorded. Procedures Surgical History Date Name Laterality Status Provider Name and Address Organization Details Recorded Time 09/22/19 24 Ear Irrigation completed Sincere Zuñiga MD [address], [address], [email or web address] 09/22/2023 14:27:11 07/30/19 24 Transitional_Care _Management completed Radha Dhillon RN [place] [facility] [employer] 07/30/2023 08:46:16 Tonsillectomy completed Rosy Soto RN [facility] [employer] [facility] 08/27/2022 09:22:13 Appendectomy completed Rosy Soto RN [facility] [employer] [facility] 08/27/2022 09:22:17 ligation of fallopian tube completed Rosy Soto RN [facility] [employer] [facility] 08/27/2022 09:22:24 anchoring of tendon of biceps completed Rosy Soto RN [facility] [employer] [facility] 08/27/2022 09:23:38 Imaging Results Imaging Date Name Status LastModified by Organiz ation Details LastModified Time 06/07/2024 CT, brain, w/o contrast completed [address], [address], 06/07/2024 17:53:19 06/07/2024 XR, chest, 2 view completed [address], [address], 06/07/2024 17:54:54 06/07/2024 XR, hip + pelvis, unilateral completed [address], [address], 06/07/2024 17:55:57 Procedure Notes None recorded. Medical Equipment None Reported. Allergies Allergen ID Allergen Name Allergen Category Reaction Reaction Severity Criticality Documentation Date Start Date Code Code System Note Provider Name and Address Organization Details Recorded Time 48129 No known allergy (situatio n) Not available Not available Not available Not available 05/10/2024 67465 6003 SNOMED Sincere Zuñiga MD [address] [facility] [address], [place], [address] [place] [address] [facility] [employer] [facility] 12:33:14 No known drug allergies Medications Name Sig Start Date Stop Date Status Note LastModified by Organization Details LastModified Time losartan 50 mg tablet 01/16 completed Not Available Not Available Not Available buspirone 5 mg tablet 5 mg twice a day by oral route. 01/16 completed Not Available Not Available Not Available atorvastat in 20 mg tablet Take 1 tablet every day by oral route at bedtime for 90 days. 2024 active Not Available Not Available Not Avai lable atorvastat in 10 mg tablet Take 1 tablet every day by oral route at bedtime for 90 days. active Not Available Not Available No t Available phenazopyr idine 200 mg tablet 07/22 completed Not Available Not Available Not Available lisinopril 20 mg tablet 20 mg by oral route. active Not Available Not Available No t Available simvastati n 10 mg tablet 08/12 completed Not Available Not Available Not Available Debrox 6.5 % ear drops INSTILL 4 DROPS INTO AFFECTED EAR(S) BY OTIC ROUTE 2 TIMES PER DAY 12/22 completed Not Available Not Available Not Available phentermin e 15 mg capsule TAKE 1 CAPSULE BY MOUTH EVERY DAY IN THE MORNING 10/07 completed Not Available Not Available Not Available phentermin e 37.5 mg tablet Take 1 tablet every other day by oral route in the morning for 30 days. active Not Available Not Available No t Available allopurino l 100 mg tablet TAKE 1 TABLET BY MOUTH EVERY DAY DIRECTED 07/29 completed Not Available Not Available Not Available ciprofloxa robert 500 mg tablet TAKE 1 TABLET BY MOUTH EVERY 12 HOURS FOR 5 DAYS 10/06 completed Not Available Not Available Not Available sulfametho xazole 800 mg-trimeth oprim 160 mg tablet TAKE 1 TABLET BY MOUTH EVERY 12 HOURS FOR 5 DAYS 03/18 completed Not Available Not Available Not Available aspirin 81 mg tablet,del ayed release Take 1 tablet every day by oral route as directed for 90 days. active Not Available Not Available No t Available phentermin e 30 mg capsule Take 1 capsule every day by oral route in the morning for 30 days. active Take [address] Not Available Not Available Not Available meloxicam 7.5 mg tablet TAKE 1 TABLET BY MOUTH DAILY 03/18 completed Not Available Not Available Not Available amoxicilli n 875 mg tablet TAKE 1 TABLET BY MOUTH EVERY 12 HOURS FOR 10 DAYS 01/06 completed Not Available Not Available Not Available misoprosto l 200 mcg tablet INSERT 2 TABLETS VAGINALL Y ON THE NIGHT BEFORE SCHEDULE D PROCEDUR E active Not Available Not Available No t Available lisinopril 30 mg tablet Take 1 tablet every day by oral route in the morning for 30 days. active Not Available Not Available No t Available diclofenac sodium 75 mg tablet,del ayed release TAKE 1 TABLET BY MOUTH EVERY 12 HOURS NEEDED WITH FOOD 07/29 completed Not Available Not Available Not Available hydrochlor othiazide 25 mg tablet 25 mg by oral route. 07/22 completed Not Available Not Available Not Available ergocalcif heidi (vitamin D2) 1,250 mcg (50,000 unit) capsule 69140 units by oral route. 01/27 completed Not Available Not Available Not Available ibuprofen 600 mg tablet 600 mg every 6 hours by oral route. 02/07 completed Not Available Not Available Not Available methylpred nisolone 4 mg tablets in a dose pack FPD AND TK PO WF 07/22 completed Not Available Not Available Not Available amoxicilli n 875 mg-potassi um clavulanat e 125 mg tablet TAKE 1 TABLET BY MOUTH EVERY 12 HOURS 07/29 completed Not Available Not Available Not Available nitrofuran toin monohydrat e/macrocry stals 100 mg capsule 07/22 completed Not Available Not Available Not Available Vitamin D 2020 active Not Available Not Available Not Avai lable losartan 07/22 completed Not Available Not Available Not Available hydrochlor othiazide 12.5 mg tablet TAKE 1 TABLET BY MOUTH EVERY DAY IN THE MORNING 2024 active Not Available Not Available Not Avai lable Golytely 236 gram-22.74 gram-6.74 gram-5.86 gram oral solution DIRECTED 12/22 completed Not Available Not Available Not Available Gavilyte-C 240 gram-22.72 gram-6.72 gram-5.84 gram oral solution DIRECTED 12/22 completed Not Available Not Available Not Available B12 2020 active Not Available Not Available Not Avai lable Vitals Date Recorded Body height Body mass index (BMI) Body weight Body temperature Heart rate Respiratory rate Oxygen saturation Oxygen saturation in Arterial blood by Pulse oximetry Systolic blood pressure Diastolic blood pressure Provider Name and Address Organization Details Last Updated DateTime 4 170.18 cm 36.2 kg/m2 855123. 19 g 98.1 [degF] 84 /min 20 /min 98 % 98 % 138 mm[Hg] 78 mm[Hg] Harley Mera [facility] 4 14:07:58 Date Recorded Body height Body mass index (BMI) Body weight Heart rate Oxygen saturation Oxygen saturation in Arterial blood by Pulse oximetry Systolic blood pressure Diastolic blood pressure Provider Name and Address Organization Details Last Updated DateTime 4 170.18 cm 36.2 kg/m2 576060. 84 g 82 /min 99 % 99 % 136 mm[Hg] 76 mm[Hg] NINOSKA Dominguez [facility] 4 14:18:41 Date Recorded Body height Body mass index (BMI) Body weight Body temperature Heart rate Respiratory rate Oxygen saturation Oxygen saturation in Arterial blood by Pulse oximetry Systolic blood pressure Diastolic blood pressure Provider Name and Address Organization Details Last Updated DateTime 4 170.18 cm 36.2 kg/m2 231681. 19 g 98.1 [degF] 82 /min 16 /min 99 % 99 % 140 mm[Hg] 74 mm[Hg] Harley Mera [facility] 4 09:57:08 Date Recorded Body height Body mass index (BMI) Body weight Body temperature Oxygen saturation Oxygen saturation in Arterial blood by Pulse oximetry Heart rate Provider Name and Address Organization Details Last Updated DateTime 5 170.18 cm 34.6 kg/m2 625809. 96 g 97.2 [degF] 96 % 96 % 81 /min Faith Cortez RN [facility] [employer] 5 12:24:58 Date Recorded Systolic blood pressure Diastolic blood pressure Provider Name and Address Organization Details Last Updated DateTime 05/10/2024 140 mm[Hg] 80 mm[Hg] Sincere Zuñiga MD [address] [place] [address], [address], [facility] [employer] 05/10/2024 12:29:56 Social History Question Answer Notes LastModified by Organizat ion Details LastModified Time Tobacco Smoking Status Former Smoker Dayanna kern, [facility] [employer] 10/06/2022 16:44:24 Do You Have An Advance Directive? No [id number] Information not available 07/01/2022 What Is Your Level Of Alcohol Consumption? None [id number] Information not available 07/01/2022 Do You Wear A Helmet When Biking? No [email or web address] Information not available 10/06/2022 What Is Your Level Of Caffeine Consumption? Heavy [id number] Information not available 07/01/2022 How Much Tobacco Do You Chew? None [id number] Information not available 07/01/2022 In The 14 Days Before Symptom Onset, Have You Had Close Contact With A Laboratory-confi rmed COVID-19 While That Case Was Ill? No [email or web address] Information not available 10/06/2022 In The 14 Days Before Symptom Onset, Have You Had Close Contact With A Person Who Is Under Investigation For COVID-19 While That Person Was Ill? No Information not available 10/06/2022 What Type Of Diet Are You Following? REGULAR [id number] Information not available 07/01/2022 Do You Or Have You Ever Used E-cigarettes Or Vape? Never Used Electronic Cigarettes [email or web address] Information not available 10/06/2022 Have There Been Any Changes To Your Family Or Social Situation? No [email or web address] Information not available 10/06/2022 What Is The Fluoride Status Of Your Home? Unknown [email or web address] Information not available 10/06/2022 When Did You Quit Smoking? 6-10yearssincelast cigarette [email or web address] Information not available 10/06/2022 Are There Any Guns Present In Your Home? No Information not available 10/06/2022 Do You Use Insect Repellent Routinely? Yes [email or web address] Information not available 10/06/2022 Where Do You Live? [facility] Information not available 10/06/2022 Are You Following A Low Salt Diet? Yes [email or web address] Information not available 10/06/2022 Do You Have A Medical Power Of Rug Inspector? No [email or web address] Information not available 10/06/2022 Do You Have Any Pets? Yes [email or web address] Information not available 10/06/2022 What Is Your Relationship Status? [id number] Information not available 07/01/2022 Do You Use Your Seat Belt Or Car Seat Routinely? Yes [email or web address] Information not available 10/06/2022 Do You Have Smoke And Carbon Monoxide Detectors In Your Home? Yes [email or web address] Information not available 10/06/2022 At What Age Did You Start Smoking Tobacco? 18 Information not available 10/06/2022 Are You Passively Exposed To Smoke? No [email or web address] Information not available 10/06/2022 Do You Or Have You Ever Used Smokeless Tobacco? Never Used Smokeless Tobacco [id number] Information not available 07/01/2022 Are There Any Smokers In Your House? No [email or web address] Information not available 10/06/2022 How Much Tobacco Do You Smoke? No [id number] Information not available 07/01/2022 Do You Participate In Social Media? Yes [email or web address] Information not available 10/06/2022 Do You Feel Stressed (tense, Restless, Nervous, Or Anxious, Or Unable To Sleep At Night)? [id number] [email or web address] Information not available 10/06/2022 Do You Use Any Illicit Or Recreational Drugs? No [email or web address] Information not available 10/06/2022 Do You Use Sunscreen Routinely? Yes [email or web address] Information not available 10/06/2022 Has Tobacco Cessation Counseling Been Provided? No [email or web address] Information not available 10/06/2022 How Many Years Have You Smoked Tobacco? -4 [email or web address] Information not available 10/06/2022 Have You Recently Traveled Abroad? No Information not available 10/06/2022 Are You Currently In School? No [email or web address] Information not available 10/06/2022 Do You Have Any Dietary Restrictions? Yes [email or web address] Information not available 10/06/2022 Do You Or Have You Ever Used Any Other Forms Of Tobacco Or Nicotine? No [email or web address] Information not available 10/06/2022 Sex: Female Functional Status Question Answer Note LastModified by Organizat ion Details LastModified Time What is your exercise level? Occasional [id number] Information not available 07/01/2022 Mental Status None recorded. Family History Relationship Description Onset Age of this Age Resolved Age Notes LastModified by Organization Details LastModified Time Father Heart disease [id number] Not available 07/01/2022 22:42:06 Father Blood pressure finding [email or web address] Not available 05/10 12:21:18 Medical History Condition Response BLINDNESS N RHEUMATIC FEVER N KIDNEY STONES N BLADDER PROBLEMS N MRSA N OTHER # 1 N POLIO N LUNG DISEASE/DISORDER N HISTORY OF DRUG ABUSE N RADIATION / CHEMOTHERAPY N COPD N Other # 2 N BLOOD DISEASES N SURGERY N EAR OR HEARING PROBLEMS N MUMPS N SHINGLES N FEMALE PROBLEMS / INFECTIONS N DEPRESSION (INCLUDING POST ) N BOWEL PROBLEMS N STROKE/TIA N THYROID DISEASE N ULCERS N BENIGN PROSTATIC HYPERPLASIA N MEASLES N CERVICALGIA N TB SKIN TEST N HYPOTENSION N MYOCARDIAL INFARCTION N PARAPELGIA N OBESITY N GERD/NAUSEA N ANEURYSM N URINARY/BLADDER/KIDNEY PROBLEMS N CORONARY ARTERY DISEASE (CAD) N MENIERE'S DISEASE N ADDICTION CONCERNS N ENDOMETRIOSIS N USE OF BLOOD THINNERS N SKIN PROBLEMS N EMPHYSEMA N GASTROINTESTINAL DISORDER N MUSCLE,JOINT OR BONE PROBLEMS N GASTROINTESTINAL BLEEDING N BLOOD CLOTS N ASTHMA N CATARACTS N ERECTILE DYSFUNCTION N GI PROBLEMS N CHF N Low Testosterone N NEUROPATHY N INFERTILITY N AIDS/HIV N FRACTURES N CHEMOTHERAPY / RADIATION N VISION/EYE PROBLEMS N LIVER DISEASE N MALE HYPOGONADISM N HYPERTENSION Y TOURETTE'S N ANXIETY DISORDER N BLOOD TRANSFUSION N ANEMIA/BLOOD DISORDER N CHRONIC EAR INFECTIONS N BRONCHITIS N TUBERCULOSIS N GLAUCOMA N FOOT PROBLEM N DIVERTICULITIS N SLEEP APNEA N CHICKENPOX N ALLERGIES/HAYFEVER N INFECTIOUS DISEASE N PROSTATE N HEART ARRHYTHMIA N INSOMNIA N HIGH CHOLESTEROL / HYPERLIPIDEMIA N HYPERTHYROIDISM N EYE PROBLEMS N EATING DISORDER N EDEMA N CHRONIC PAIN SYNDROME N CONSTIPATION N CAROTID BLOCKAGE N BACK / NECK PROBLEMS N HAVE YOU BEEN HOSPITALIZED OR SEEN IN [facility] IN THE PAST YEAR ? Y ATHEROSCLEROSIS N BREAST PROBLEMS N DIALYSIS N ECZEMA N FIBROMYALGIA N OSTEOPOROSIS N ARTHRITIS N NO SIGNIFICANT PAST MEDICAL HISTORY N APPENDICITIS N DIABETES, TYPE N BAD TEETH N HEARTBURN / REFLUX N ADD/ADHD N AUTISM SPECTRUM DISORDER (ASD) N HEPATITIS / LIVER DISEASE N PULMONARY DISEASE N GOUT N SLEEP DISORDER N ALZHEIMER'S DISEASE N PAIN N HERPES N DEMENTIA N SEIZURES/EPILEPSY N HEADACHES/MIGRAINES N VASCULAR DISEASE N PACEMAKER N DIZZINESS N KIDNEY DISEASE N HEART DISEASE/HEART PROBLEMS N SCARLET FEVER N MULTIPLE SCLEROSIS N MENTAL DISORDER/ILLNESS N DEVELOPMENTAL OR BEHAVIORAL DISORDERS N CARDIAC ARRHYTHMIA N CANCER: SPECIFY N PNEUMONIA N Gall Stones N ATRIAL FIBRILLATION N PULMONARY EMBOLISM N AUTOIMMUNE DISEASE N Gynecological History Statement/Question Response If Post Menopausal, Age at Menopause 54 Abnormal Pap N Sexually Active? Y STIs/STDs N HPV Vaccine N Current Control Method Menopause Age at Menarche 12 N Obstetrics History GPAL:G 0 P 0 0 0 0 Immunizations Vaccine Type Date Status Note Provider Nam e and Address Organization Details Recorded Time influenza, unspecified formulation 1 completed Sincere Zuñiga MD [address], [address], [place], [address], [employer] 05/10/2024 12:33:36 influenza, unspecified formulation 2 completed Sincere Zuñiga MD [address], [address], [place], [address], [employer] 05/10/2024 12:33:36 influenza, unspecified formulation 8 completed Sincere Zuñiga MD [address] [facility], [address], [place], [address], [employer] 05/10/2024 12:33:36 influenza, unspecified formulation 9 completed Sincere Zuñiga MD [address], [address], [place], [address], [employer] 05/10/2024 12:33:36 Td (adult), 5 Lf tetanus toxoid, preservative free, adsorbed 1 completed Sincere Zuñiga MD [address], [address], [place], [address], [employer] 05/10/2024 12:33:36 Past Encounters Encounter ID Performer Location Encounter Start Date Encounter Closed Date Diagnosis/Indication Diagnosis SNOMED-CT Code Diagnosis ICD10 Code Diagnosis Note [id number] [facility] [place] [address] 07/22/2020 00:00:00 07/22/2020 15:44:44 [id number] [facility] [place] [address] [place] [address] 07/30/2020 00:00:00 07/30/2020 10:56:07 [id number] [facility] [address] [place] [address] 08/12/2020 00:00:00 08/12/2020 15:29:58 [id number] [facility] [address] [place] [address] 09/09/2020 00:00:00 09/09/2020 15:05:06 [id number] [facility] [place] [address] [place] [address] 10/07/2020 00:00:00 10/07/2020 10:42:53 [id number] [facility] [place] [address] [place] [address] 10/29/2020 00:00:00 10/29/2020 14:00:44 [id number] [facility] [place] [address] [place] [address] 11/05/2020 00:00:00 11/05/2020 10:22:54 [id number] [facility] [address] [place] [address] 12/03/2020 00:00:00 12/03/2020 09:34:45 [id number] [facility] [place] [address] [place] [address] 02/26/2021 00:00:00 02/27/2021 09:45:58 [id number] [facility] [place] [address] [place] [address] 03/05/2021 00:00:00 03/05/2021 09:14:34 [id number] [facility] [place] [address] [place] [address] 08/25/2021 00:00:00 08/25/2021 09:17:20 [id number] [facility] [place] [address] [place] [address] 09/08/2021 00:00:00 09/08/2021 09:27:03 [id number] [facility] [place] [address] [place] [address] 12/09/2021 00:00:00 12/09/2021 09:11:42 [id number] [facility] [place] [address] [place] [address] 03/11/2022 00:00:00 03/11/2022 12:32:54 [id number] [facility] [place] [address] [place] [address] 03/18/2022 00:00:00 03/18/2022 14:21:52 [id number] [facility] [place] [address] [place] [address] 04/01/2022 00:00:00 04/01/2022 11:21:24 [id number] [facility] [place] [address] [place] [address] 06/29/2022 00:00:00 06/29/2022 09:45:54 [id number] Sincere Zuñiga MD [facility] [place] [address] [place] [address] 08/27/2022 09:17:24 08/27/2022 09:50:36 Adult health examination 512750747 Z00.00 Prediabetes 227745810 R7 3.03 Vitamin D deficiency 347 62200 E55.9 Pain of le ft shoulder joint 5795964279 9767575 M25.512 [id number] Sincere Zuñiga MD [facility] [place] [address] [place] [address] 09/24/2022 08:58:01 09/24/2022 09:21:06 [id number] Sincere Zuñiga MD [facility] [place] [address] [place] [place] [address] 10/06/2022 16:43:11 10/06/2022 17:06:12 Prediabetes 752664918 R73.03 Improved Vitamin D deficiency 347 96322 E55.9 Improved Pain of le ft shoulder joint 6325604098 3896442 M25.512 Hyperlipidemia 67961802 E78.5 Gouty arthropathy 516991 008 M10.09 Leukopenia 92449782 D72. 819 Skin lesion 48121260 L98 .9 Hypertriglyceridemia 302 060990 E78.2 [id number] Sincere Zuñiga MD [address] [address] 01/06/2023 09:31:29 01/06/2023 09:57:21 [id number] Sincere Zuñiga MD [address] [address] 01/06/2023 09:43:22 01/06/2023 10:32:22 [id number] JESSIKA Urbina [address] [address] 07/30/2023 08:42:09 07/30/2023 09:28:47 Transition of care 7656808961 105 Z75.8 Continue with hospital discharge instructio ns.Notify us or go to the ER for any changes to condition includes nausea, vomiting, abdominal pain, or fevers Nontraumat ic perforation of large intestine 150640768 K63.1 Notify us or go to the ER for any changes to condition includes nausea, vomiting, abdominal pain, or fevers [id number] Sincere Zuñiga MD [address] [address] 09/02/2023 09:26:57 09/02/2023 10:04:06 Hyperlipidemia 72498914 E78.5 Hypertriglyceridemia 302 940822 E78.2 Prediabetes 824096945 R7 3.03 Improved Vitamin D deficiency 347 16374 E55.9 Improved Pain of le ft shoulder joint 5689896331 1657120 M25.512 Resolved Gouty arthropathy 612215 008 M10.09 Leukopenia 72725128 D72. 819 Adult heal th examination 435978903 Z00.00 Screening colonoscopy 44 1189957 Z12.11 Screening mammography 24 554848 Z12.31 Screening for osteoporosis 044758525 Z13.820 Impacted c erumen in right ear 2551243029 410506 H61.21 Ex-smoker 4192961 Z87.89 1 [id number] Kristi Lezama MD [facility] General Surgery [address] [place] [address] 09/29/2023 14:16:56 09/29/2023 14:40:03 Screening for malignant neoplasm of colon 184482943 Z12.11 [id number] Sincere Zuñiga MD [place] [address] 09/22/2023 14:01:49 09/22/2023 15:20:25 Impacted cerumen in right ear 8957886539 074722 H61.21 Hyperlipidemia 19616645 E78.5 Hypertriglyceridemia 302 531057 E78.2 Prediabetes 628004099 R7 3.03 Improved Vitamin D deficiency 347 01115 E55.9 Improved Pain of le ft shoulder joint 6341060087 0445683 M25.512 Resolved Gouty arthropathy 035056 008 M10.09 Leukopenia 68313275 D72. 819 Ex-smoker 9422302 Z87.89 1 [id number] Sincere Zuñiga MD [place] [address] 12/23/2023 09:50:25 12/23/2023 10:13:35 Hyperlipidemia 10222755 E78.5 Hypertriglyceridemia 302 918004 E78.2 Prediabetes 625201278 R7 3.03 Improved - diet controlled Vitamin D deficiency 347 81192 E55.9 Improved Pain of le ft shoulder joint 1570343090 5558597 M25.512 Resolved Gouty arthropathy 919987 008 M10.09 Leukopenia 12687978 D72. 819 Ex-smoker 0638037 Z87.89 1 Hypertensive disorder 38 645893 I10 [id number] JESSIKA Urbina [address] [address] 05/05/2024 09:48:18 05/05/2024 10:17:25 [id number] Sincere Zuñiga MD [facility] [address] [place] [address] 05/10/2024 12:20:37 05/10/2024 12:43:39 Hyperlipidemia 72345974 E78.5 Hypertriglyceridemia 302 906380 E78.2 Prediabetes 750845801 R7 3.03 Improved - diet controlled Vitamin D deficiency 347 53120 E55.9 Improved Pain of le ft shoulder joint 9604320076 0709771 M25.512 Resolved Gouty arthropathy 005840 008 M10.09 Leukopenia 99076662 D72. 819 Chronic Hypertensive disorder 38 100258 I10 Ex-smoker 9068780 Z87.89 1 Obesity 933401278 E66.9 Health Concerns Section Related Observation LastModified by Organization Detai ls LastModified Time None Recorded Concern Status LastModified by Organization Details LastModified Time None Recorded Advance Directives Directive N: Payers Encounter Date Sequence Insurance Name Policy Number Policy Loomis Covered Member ID Loomis Member ID Guarantor Name 09/22/2023 1 [facility] ON OR AFTER 10/31/20 (MEDICAID REPLACEMENT - HMO) Osiris Fontenot [id number] Osiris Betyrone 09/29/2023 1 [facility] ON OR AFTER 10/31/20 (MEDICAID REPLACEMENT - HMO) Osiris Fontenot [id number] Osiris Beavers 12/23/2023 1 [facility] ON OR AFTER 10/31/20 (MEDICAID REPLACEMENT - HMO) Osiris Fontenot [id number] Osiris Beavers 05/05/2024 1 [facility] ON OR AFTER 10/31/20 (MEDICAID REPLACEMENT - HMO) Osiris Fontenot [id number] Osiris Beavers 05/10/2024 1 [facility] ON OR AFTER 10/31/20 (MEDICAID REPLACEMENT - HMO) Osiris Fontenot [id number] Osiris Fontenot Notes Date Note Type Note Provider Name and Address Organization Details Recorded Time 09/22/2023 text/html Pt is here for f/u on her annual labs and Rt ear flushing. Doing overall well. Denies any new concerns. Pt will be seeing GI next week. Pt was seen at ED in 07/24 due to abdominal pain and diarrhea and she was found to have micro perforation in her large bowel and was admitted for 4 days. Since than, she is doing well. Denies any more concern with it. Good appetite ++.Pt has her home BP log and its looking good at her home. Pt is f/u with Derm for her skin lesions and got couple removed with them. Sincere Zuñiga MD [address], [address], [place], [address], [employer] 09/22/2023 14:28:38 09/29/2023 text/html PT WAS SEEN IN THE OFFICE TODAY FOR COLON SCREENING . PT DENIES ABD PAIN /N/V/D/BLEEDING /WT LOSS. FIRST COLON . Kristi Lezama MD [address], [address], [place], [address], [employer] 09/29/2023 14:37:32 12/23/2023 text/html Pt is here for f/u on her labs and chronic conditions. Doing overall well. Denies any new concerns. Pt forgot to go for labs/mammo/DEXA. Pt has seen GI and got c-scope done in 11/23 and everything came back good. No more concern with it. Pt was seen at ED in 07/24 due to abdominal pain and diarrhea and she was found to have micro perforation in her large bowel and was admitted for 4 days. Since than, she is doing well. Denies any more concern with it. Good appetite ++.Pt has her home BP log and its looking good at her home. Pt is f/u with Derm for her skin lesions and got couple removed with them. Sincere Zuñiga MD [address], [address], [place], [address], [employer] 12/23/2023 10:11:41 05/10/2024 text/html Pt is here for f/u on her labs and chronic conditions. Doing overall well. Denies any problem with meds. Denies any new concerns. Pt is not taking statin regularly. Pt forgot to go for mammo/DEXA. Pt is checking her BP at home and its good as per pt. Pt has seen GI and got c-scope done in 11/23 and everything came back good. No more concern with it. Pt was seen at ED in 07/24 due to abdominal pain and diarrhea and she was found to have micro perforation in her large bowel and was admitted for 4 days. Since than, she is doing well. Denies any more concern with it. Good appetite ++. Pt is f/u with Derm for her skin lesions and got couple removed with them. Sincere Zuñiga MD [address] [facility], [facility] [address], [place], [address], [place] [facility] 05/10/2024 12:37:39 OBGyn Episode No OBEpisode recorded.
--- OUTSIDE RECORDS SUMMARY | 2024-06-07 18:02 | XMS_ITS | Patient Health Summary ---
Author Organization [facility] Address [address] [place] [address] Care Team Providers Care Adjunct Sociology Professor Name Role Phone Christianne Ramirez Primary Care Provider [phone] Note from [facility],non-owned Affiliates and Associated Physician Practices is amultiple site organization consisting of ambulatory clinics and hospital sitesin [place], [place]. This disclosure is being madepursuant to the Care Everywhere program and may not contain all information available regarding this patient. Last updated 18.[facility] Allergies No known active allergies Medications * [...] postoperative change as noted above. Katey Yin [employer] CT ORDERABL ES * (ABNORMAL) CBC W [...] CDT 02/27/2015 6:35 PM CDT Katey Yin [employer] LAB - HEMAT OLOGY ORDERABLES [facility] [address] [place] [address], [facility] * (ABNORMAL) COMPREHENSIVE METABOLIC PANEL (02/27/2015 6:25 PM CDT) [facility] Glucose 94 70 - 125 mg/dL 02/27/2015 [...] - 55 U/L 02/27/2015 6:59 PM CDT [facility] AST 14 5 - 34 U/L 02/27/2015 6:59 PM CDT [facility] Protein Total 7.7 6.4 - 8.3 gm/dL 02/27/2015 6:59 PM CDT [facility] Albumin 4.1 3.5 - 5.0 gm/dL 02/27/2015 6:59 PM CDT [facility] Globulin Total 3.6 2.6 - 4.0 gm/dL 02/27/2015 6:59 PM CDT [facility] Albumin/Globulin Ratio 1.1 0.9 - 1.6 02/27/2015 6:59 PM CDT [facility] Bilirubin Total 0.3 0.2 - 1.2 mg/dL 02/27/2015 6:59 PM CDT [facility] Blood BLOOD SPECIMEN / Unknown 02/27/2015 6:25 PM CDT 02/27/2015 6:35 PM CDT Katey Yin [employer] LAB - CHEMI STRY ORDERABLES [facility] [address] [place] [address], [facility] * LIPASE BLOOD (02/27/2015 6:25 PM CDT) Lipase 35 8 - 78 U/L 02/27/2015 6:59 PM CDT [facility] Blood BLOOD SPECIMEN / Unknown 02/27/2015 6:25 PM CDT 02/27/2015 6:35 PM CDT [facility] - CHEMI STRY ORDERABLES Performing Organization Address City/[facility]/ZIP Co de Phone Number [facility] [address] * (ABNORMAL) URINALYSIS MICROSCOPIC ONLY W/REFLEX CULTURE (02/27/2015 6:15 PM CDT) RBC UA 0-2 None , 0-2 # /hpf 02/27/2015 6:55 PM CDT [facility] WBC UA 2-5 None , 0-2, 2-5 # /hpf 02/27/2015 6:55 PM CDT [facility] Bacteria UA 3+(A) None Seen, Trace 02/27/2015 6:55 PM CDT [facility] Epithelial Cell UA 0-2 0-2, 2-5, 5-10 02/27/2015 6:55 PM CDT [facility] Reflex Status Culture to follow 02/27/2015 6:55 PM CDT [facility] Urine URINE SPECIMEN OBTAINED BY CLEAN CATCH PROCEDURE / Unknown 02/27/2015 6:15 PM CDT 02/27/2015 6:35 PM CDT Narrative [facility] - 02/27/2015 6:55 PM CDT Bacteria, epithelial cells, mucus, and crystals are reported as quantity/HPF. Katey Yin [facility] - URINA LYSIS ORDERABLES [facility] [address] * (ABNORMAL) URINALYSIS ROUTINE W/REFLEX TO CULTURE (02/27/2015 6:15 PM CDT) Color UA Straw 02/27/2015 6:46 PM CDT [facility] Clarity UA Clear 02/27/2015 6:46 PM CDT [facility] Glucose UA Negative Negative 02/27/2015 6:46 PM CDT [facility] Bilirubin UA Negative Negative 02/27/2015 6:46 PM CDT [facility] Ketone UA Negative Negative 02/27/2015 6:46 PM CDT [facility] Specific [place] UA 1.020 1.005 - 1.030 02/27/2015 6:46 [...] CDT 02/27/2015 6:35 PM CDT Katey Yin [employer] LAB - URINA LYSIS ORDERABLES Performing Organization Address City/State/[facility] Co de Phone Number [facility] [address] * (ABNORMAL) CULTURE URINE (02/27/2015 6:15 PM CDT) Culture >100,000 CFU/mL Escherichia coli(A) RAND 03/01/2015 8:40 AM CDT [facility] Urine URINE SPECIMEN OBTAINED [...] Trimethoprim-sulfamethoxazole RAND <=2 ug/mL: Susceptible Katey Yin [employer] LAB - MICRO BIOLOGY ORDERABLES [facility] [address] * MICROALBUMIN URINE RANDOM (08/29/2012 10:21 AM CDT) Microalbumin Urine 1.4 0.0 - 17.0 ug/mL [facility] ACCOUNT BILL Urine specimen (specimen) URINE / Unknown 08/29/2012 10:21 AM CDT 08/29/2012 6:55 PM CDT Narrative Resulting Agency Comment [facility] [address] [id number] Christianne Ramirez DO LAB - URINE CHEMISTR Y ORDERABLES [facility] ACCOUNT BILL * GROSS + MICRO EXAM (09/14/2007 9:40 AM CDT) Only the most recent of5 resultswithin the time period is included. Result CASE NUMBER [id number] Comment: ORDERING PHYSICIAN REAGAN EVANS SPECIMEN TYPE Cervical Cone-@1200 *CLINICAL HISTORY A 47 year old female with YANELI III, status post excisional biopsy, history of dysmenorrhea, and menorrhagia, status post intrauterine device insertion with good control, underwent cold conization of cervix and endocervical curettage for suspected residual dysplasia. SPECIMEN SOURCE A) Cervical conization at 12 00 position. B) Endocervical curettings. GROSS DESCRIPTION The specimen is received in two parts. A) Received in formalin, labeled with the patient's identification, and designated cervical conization at 12 00 position is a roughly tubular fragment of white, rubbery tissue measuring 1.5 - 2.0 cm in length and 0.9 (endocervical) to 2.0 cm in diameter (ectocervical). The cervical cone has been opened prior to the receipt. The open side is arbitrarily designated as 12 00. The cervical mucosa appears somewhat granular. The endocervical margin and its adjacent stroma are inked green. The ectocervical margin and its adjacent stroma are inked yellow. The specimen is serially perpendicular sectioned and submitted sequentially starting from 12 00 in cassettes A1-A5. B) Received in formalin, labeled with the patient's identification, and designated endocervical curettings is a specimen consisting of scanty minute, red, fibrillary, soft tissue. The entire specimen is filtered through a nylon bag to yield approximately 0.5 x 0.2 x <0.1 cm in aggregate. Submitted entirely in cassette B1. HC/lw GROSSED BY DILIA FARAH M.D. *MICROSCOPIC EXAM There is a small focus of high grade squamous dysplasia (YANELI III) (slide A2). Dysplasia appears to involve an endocervical crypt. This focus is close to, but not at inked margin of endocervical resection. Other regions show variable degrees of chronic inflammatory infiltrates, mucosal epithelial reparative and metaplastic changes. The sections of endocervical curettage show scanty tissue consisting primarily of stroma with rare atrophic glands. Evidence of dysplasia is not seen. READ BY DILIA FARAH M.D. DIAGNOSIS A) CERVIX, 12 00 POSTERIOR , CONE BIOPSY -SMALL FOCUS OF CERVICAL INTRAEPITHELIAL NEOPLASIA, YANELI III (OF III), WITH INVOLVEMENT OF ENDOCERVICAL CRYPT, CLOSE TO, BUT NOT AT THE ENDOCERVICAL MARGIN OF RESECTION. -ECTOCERVICAL MARGIN IS FREE OF DYSPLASIA. -MUCOSAL EROSION, CHRONIC INFLAMMATION, REPARATIVE AND METAPLASTIC EPITHELIAL CHANGES. B) ENDOCERVIX, CURETTAGE -SCANTY BENIGN ENDOCERVICAL STROMA WITH RARE ATROPHIC GLANDS. -NO EVIDENCE OF DYSPLASIA OR MALIGNANCY. RELEASED BY DILIA FARAH MISCELLANEOUS SAMPLES / Unknown 09/14/2007 9:40 AM CDT 09/14/2007 11:41 AM CDT Historical Provider MD LAB - PATHOLOGY/C YTOLOGY ORDERABLES Care Teams Adjunct Sociology Professor Relationship Specialty Start Date End Date Christianne Ramirez DO PCP - General Family Medicine 08/23/12
--- OUTSIDE RECORDS SUMMARY | 2024-06-07 18:02 | XMS_ITS | Clinical Summary ---
Author Organization [facility] Address [address] [place] [address] Care Team Providers Care Director Skills Name Role Phone Sincere Zuñiga MD Primary Care Provider [phone] Allergies No known active allergies Medications hydroCHLOROthiazi [...] 77 01/28/2024 9:37 AM CDT Temperature 36.2 C (97.2 F) 01/28/2024 8:13 AM CDT Respiratory Rate 16 01/28/2024 9:37 AM CDT [...] (CAD) DATE: 10/27/2018 2:28 PM COMPARISON STUDIES: 11/11/2016, 06/20/2015, 08/15/2011. CLINICAL HISTORY: ROUTINE . Screening, no complaints. FINDINGS: Bilateral CC, MLO, 2-D and 3-D acquisitions. Scattered residual fibroglandular parenchyma . Similar in appearance and distribution to the previous exams. No evidence of dominant mass, architectural distortion, skin thickening, nipple retraction or suspicious clusters of microcalcifications. Benign calcifications redemonstrated. . CONCLUSION: 1. BI-RADS Category 2 - benign findings. Annual screening mammography recommended 2. TISSUE TYPE: Category B - There are areas of scattered fibroglandular density. MQSA BI-RADS Categories: Category 0 - needs additional imaging evaluation. Category 1 - negative. Category 2 - benign findings. Category 3 - probably benign findings, but short interval follow-up is recommended. Category 4 - suspicious abnormality and biopsy should be considered though the lesion may well be benign. Category 5 - highly suggestive of malignancy and appropriate action should be taken. A) A negative report should not delay a biopsy if a dominant or clinically suspicious mass is present. B) Adenosis and dense breasts may obscure an underlying neoplasm. C) Study interpreted with computer aided detection. Voice recognition software utilized. Interpreted By: Ozzie Soto, 10/27/2018 3:57 PM Kan Villatoro NP MAMMO Final Result * [facility]AG[facility] PAP [...] rmation not provided SOURCE (QST) SEE NOTE MEDOU P TO EPIC CONVERSION Comment:Result Comment: Info [...] has been evaluated with computer assisted technology. MEDICAL RECORD TECHNICIAN SEE NOTE [facility] GROUP TO EPIC CONVERSION Comment: Result Comment: MEF, CT(ASCP) CT screening location: [place] [address] [place] [address] Test Performed at: [facility] [address] [place] [address] ISAIAH JACKSON MD 07/17/2015 07/17/2015 Narrative [facility] TO EPIC CONVERSION - 07/18/2015 10:03 AM CDT Result Communication: No patient communication needed at this time us Carmelita Cabello MD PATHOLOGY/CYTOLOGY ORDERABLE S Final Result [facility] TO EPIC CONVERSION from Last 3 Months or Most Recently Relevant to Health Maintenance Insurance [place] Advance Directives * Full Code (Latest Code Status on File) Date Activated Date Inactivated Comments 01/28/2024 8:18 AM 01/28/2024 12:04 PM Care Teams Director Skills Relationship Specialty Start Date End Date Sincere Zuñiga MD [address] [place] [address] PCP - General HOSPITALIST 01/28/24
--- OUTSIDE RECORDS SUMMARY | 2024-06-07 18:02 | XMS_ITS | Referral Summary ---
Author Organization [facility] Address [address] [place] [address] Care Team Providers Care Manager R D Name Role Phone Christianne Ramirez Primary Care Provider [phone] Source Comments [facility],non-owned Affiliates and Associated Physician Practices is amultiple site organization consisting of ambulatory clinics and hospital sitesin [place], [place], [place] and [place]. This disclosure is being madepursuant to the Care Everywhere program and may not contain all information available regarding this patient. Last updated 18.[facility] Allergies No known active allergies Medications * [...] COMPREHENSIVE METABOLIC PANEL (02/27/2015 6:25 PM CDT) [facility] Signature Glucose 94 70 - 125 mg/dL 02/27/2015 [...] - 20 mmol/L 02/27/2015 6:59 PM CDT [facility] BUN 16.4 9.8 - 20.1 mg/dL 02/27/2015 6:59 PM CDT [facility] Creatinine 0.71 0.57 - 1.11 mg/dL 02/27/2015 6:59 PM CDT [facility] eGFR by MDRD >60 >60 mL/min/1.7 3m2 02/27/2015 6:59 PM CDT AM [facility] eGFR by MDRD >60 >60 mL/min/1.7 3m2 02/27/2015 6:59 PM CDT [facility] Alkaline Phosphatase 71 40 - 150 U/L 02/27/2015 6:59 PM CDT [facility] ALT 15 5 - 55 U/L 02/27/2015 6:59 PM CDT [facility] AST 14 5 - 34 U/L 02/27/2015 6:59 PM CDT [facility] Protein Total 7.7 6.4 - 8.3 gm/dL 02/27/2015 6:59 PM CDT [facility] Albumin 4.1 3.5 - 5.0 gm/dL 02/27/2015 6:59 PM CDT [facility] Globulin Total 3.6 2.6 - 4.0 gm/dL 02/27/2015 6:59 PM CDT [facility] Albumin/Globulin Ratio 1.1 0.9 - 1.6 02/27/2015 6:59 PM CDT [facility] Bilirubin Total 0.3 0.2 - 1.2 mg/dL 02/27/2015 6:59 PM CDT [facility] Blood BLOOD SPECIMEN / Unknown 02/27/2015 6:25 PM CDT 02/27/2015 6:35 PM CDT Katey Yin DRUM STENCILER-MANAGER SAP LAB - CHEMI STRY ORDERABLES [facility] [address] [place], [place] [address] * MICROALBUMIN URINE RANDOM (08/29/2012 10:21 AM CDT) Microalbumin Urine 1.4 0.0 - 17.0 ug/mL [facility] ACCOUNT BILL Urine specimen (specimen) URINE / Unknown 08/29/2012 10:21 AM CDT 08/29/2012 6:55 PM CDT Narrative Resulting Agency Comment [facility] [address] [id number] Christianne Ramirez DO LAB - URINE CHEMISTR Y ORDERABLES [facility] ACCOUNT BILL from Last 3 Months or Most Recently Relevant to Health Maintenance Care Teams Manager R D Relationship Specialty Start Date End Date Christianne Ramirez DO PCP - General Family Medicine 08/23/12
--- OUTSIDE RECORDS SUMMARY | 2024-06-07 18:02 | XMS_ITS | Encounter Summary ---
Author Organization [facility] Address [address] [place] [id number] Care Team Providers Care Tooth Cutter Contact Wheel Name Role Phone Janet Alegria Primary Care Provider [phone] Sincere Zuñiga MD Primary Care Provider [phone] Encounter Details Date Type Department Care Team (Late st Contact Info) Description 07/25/2020 instruMagic Message [facility] [address] [place] [id number] [facility] RE:Annual Physical Social History Tobacco [...] on filedocumented in this encounter Care Teams Tooth Cutter Contact Wheel Relationship Specialty Start Date End Date Janet Alegria FNP PCP - General Nurse Practitioner Family 04/04/2006/09 Sincere Zuñiga MD [address] [phone] PCP - General HOSPITALIST 01/28/24 documented as of this encounter
--- OUTSIDE RECORDS SUMMARY | 2024-06-07 18:02 | XMS_ITS | Clinical Summary ---
Author Organization [facility] Address [address] [place] [address] Care Team Providers Care Embedded Systems Software Engineer Name Role Phone Sincere Zuñiga MD Primary Care Provider [phone] Allergies No known active allergies Medications meloxicam [...] on file Legal Sex Female 3:36 AM INVESTIGATIVE WRITER Gender Identity Not on file Sexual Orientation [...] patient's age to complete this topic Insurance Care Teams Embedded Systems Software Engineer Relationship Specialty Start Date End Date Sincere Zuñiga MD [address] [place] [address] PCP - General Family Medicine 08/19/21
[2024-06-07 18:03] LABS: Add Urine Microscopic? NO; Appearance Urine Clear (Clear); Bilirubin Urine Negative (Negative); Blood Urine Negative (Negative); Color Urine Yellow (Yellow); Glucose Urine UA Negative (Negative); Ketones Urine Negative (Negative); Leukocyte Esterase Ur Negative LEU/UL (Negative); Nitrate Urine Negative (Negative); Protein Urine Negative (Negative); Specific Grav Ur 1.015 (1.001-1.035); Urobilinogen Urine 0.2 mg/dL (<2.0)
[2024-06-07] MEDS: SODIUM CHLORIDE 0.9% IV 1,000 ML 999 ML IV CONT (18:21)
[2024-06-07] MEDS: ACETAMINOPHEN 500 MG TABLET 1000 MG PO (18:22)
[2024-06-07] MEDS: KETOROLAC 15 MG/ML VIAL (*BKC) IV PUSH (18:24)
[2024-06-07] MEDS: diphenhydrAMINE HCl INJ 50 MG/ML VIAL 25 MG IV PUSH (18:26)
[2024-06-07] MEDS: PROCHLORPERAZINE EDISYLATE 10 MG/2 ML VIAL IV PUSH (18:27)
--- NOTE | 2024-06-07 18:34 | PC.NURSE ---
PIV obtained, flushes wo difficulty. Pt medicated as per jul. Remains on full monitor, VS as charted. Lights dimmed, call light in reach.
--- NOTE | 2024-06-07 19:03 | ED_ITS ---
HPI - General Adult General Chief complaint: Recheck/Abnormal Lab/Rx Stated complaint: HTN Time Seen by Provider: 06/07/24 12:10 History of Present Illness HPI narrative: This is a 63-year-old female with history of migraines presenting with a headache. Patient says she woke with a headache that is around the right restoration and in the back of her head. She frequently has migraines although she feels this is different. She did have a visual scotoma earlier which is normal for her headaches. She checked her blood pressures and she known they were elevated. She has also felt nauseous and unwell overall and has a says child sick at home with cold symptoms. Patient is concerned she checked her blood pressure home and it was 160/100. She denies fevers, neck pain chest pain difficulty breathing abdominal pain or urinary symptoms. She typically takes Tylenol for headaches but did not take anything today per Related Data Home Medications ?Medication ?Instructions ?Recorded ?Confirmed ?Last Taken ?Type lisinopril 20 mg tablet 20 mg PO DAILY 07/17/23 06/07/24 06/06/24 History aspirin 81 mg tablet,delayed mg 06/07/24 06/07/24 History release atorvastatin 20 mg tablet mg 06/07/24 Unknown History hydrochlorothiazide 12.5 mg tablet mg 06/07/24 06/06/24 History Allergies Allergy/AdvReac Type Severity Reaction Status Date / Time No Known Allergies Allergy Verified 06/07/24 17:37 [facility] Past Medical History Medical History Diverticulosis Hypertension Diverticulitis Family History Family History Mother Hypertension Social History Social History Smoking status: Former smoker Smoking end date: 05/03/13 Alcohol intake: never Substance use: never Do You Feel Safe in your Home?: Yes Lack of Transportation: No Lack of Food: Never True Current Housing: I Have Housing Concerned About Future Housing: No Difficulty Paying Gas/Electric Bills: No Difficulty Paying for Meds: No Currently Unemployed: No Education: Master's Degree or Higher Difficulty w/ Childcare or Family Care: No Spiritual care concerns: No Exam 2 Narrative: APPEARANCE: No apparent distress. Head: atraumatic. EYES: EOMI, NOSE: Atraumatic NECK: Trachea midline RESPIRATORY: No increased rate of breathing CTAB CARDIOVASCULAR: RRR, no peripheral edema ABDOMINAL: Non-distended soft nontender MUSCULOSKELETAl: No obvious deformities NEURO: Alert. Cranial nerves 2-12 grossly intact. Sensation light touch, motor function cerebellar function intact for 4 extremities. Gait exam was normal. SKIN:: Warm, dry. Normal color PSYCHIATRIC: Normal affect Course Vital Signs Vital signs: Vital Signs Temperature 97.6 F 06/07/24 11:24 Pulse Rate 93 06/07/24 11:24 Respiratory Rate 16 06/07/24 11:24 Blood Pressure 154/61 H 06/07/24 11:24 Pulse Oximetry 99 06/07/24 11:24 Temperature 98.2 F 06/07/24 16:02 Pulse Rate 86 06/07/24 19:02 Respiratory Rate 16 06/07/24 19:02 Blood Pressure 134/65 06/07/24 19:02 Pulse Oximetry 97 06/07/24 19:02 Medical Decision Making [facility] Narrative Medical decision making narrative: -Course: 63-year-old female presenting with a headache. Normal physical exam. History of migraines. CT head, laboratory studies normal. Viral swabs negative. Patient received migraine cocktail with improvement in her headache. Her blood pressure then normalized. Patient is comfortable being discharged. -DDX includes but is not limited to: Migraine, tension headache, viral syndrome Vital Signs Vital Signs: Vital Signs Temperature 97.6 F 06/07/24 11:24 Pulse Rate 93 06/07/24 11:24 Respiratory Rate 16 06/07/24 11:24 Blood Pressure 154/61 H 06/07/24 11:24 Pulse Oximetry 99 06/07/24 11:24 Temperature 98.2 F 06/07/24 16:02 Pulse Rate 86 06/07/24 19:02 Respiratory Rate 16 06/07/24 19:02 Blood Pressure 134/65 06/07/24 19:02 Pulse Oximetry 97 06/07/24 19:02 Lab Data 06/07/24 15:30 06/07/24 15:30 Labs: Lab Results 06/07/24 06/07/24 Range/Units 15:30 17:55 WBC 4.8 (4.5-10.0) K/mm3 RBC 5.01 (4.2-5.4) M/mm3 Hgb 13.2 (12.0-15.0) g/dL Hct 41.2 (37.0-47.0) % MCV 82.2 (80-100) fl MCH 26.3 (26-34) pg MCHC 32.0 (32-36) g/dl RDW 13.8 (11.5-14.5) % Plt Count 206 (150-375) k/mm3 MPV 11.0 H (7.4-10.4) fl Immature Gran % (Auto) 0.2 (0-0.5) % Neut % (Auto) 50.1 (45.5-73.1) % Lymph % (Auto) 37.3 (18.3-44.2) % Barbour % (Auto) 8.5 (2.6-8.5) % Eos % (Auto) 3.1 (0-4.4) % Baso % (Auto) 0.8 (0.2-1.2) % Lymph # (Auto) 1.80 (0.9-3.2) K/mm3 Barbour # (Auto) 0.4 (0.1-0.6) K/mm3 Eos # (Auto) 0.2 (0-0.3) K/mm3 Baso # (Auto) 0.0 (0.0-0.1) K/mm3 Abs Immat Gran (auto) 0.01 (0.00-0.031) K/mm3 Absolute Neuts (auto) 2.4 (1.3-6.7) K/mm3 Absolute Nucleated RBC 0.000 (0.0-0.012) K/mm3 Nucleated RBC % 0.0 (0.0-0.2) % PT 12.9 (11.1-14.7) Seconds INR 0.9 APTT 26.4 (22.3-36.8) Seconds Sodium 135 L (137-145) mmol/L Potassium 3.7 (3.4-5.0) mmol/L Chloride 103 (98-107) mmol/L Carbon Dioxide 24 (22-30) mmol/L Anion Gap 8 (4-12) mmol/L BUN 18 H (7-17) mg/dL Creatinine 0.62 L (0.7-1.0) mg/dL Estim Creat Clear Calc 97 ml/min Estimated GFR > 60 (59 - ) Glucose 136 H (65-110) mg/dL Calcium 9.7 (8.4-10.2) mg/dL Total Bilirubin 0.4 (0.2-1.3) mg/dL AST 21 (14-36) U/L ALT 18 (6-35) U/L Alkaline Phosphatase 78 (38-126) U/L Troponin I < 0.012 (0.000-0.034) ng/mL Total Protein 8.0 (6.3-8.2) g/dL Albumin 4.3 (3.5-5.1) g/dL TSH 1.150 (0.465-4.680) uIU/mL Urine Color Yellow (Yellow) Urine Appearance Clear (Clear) Urine pH 5.0 (5.0-9.0) Ur Specific [place] 1.015 (1.001-1.035) Urine Protein Negative (Negative) mg/dL Urine Glucose (UA) Negative (Negative) mg/dL Urine Ketones Negative (Negative) mg/dL Ur Blood (Man) Negative (Negative) Urine Nitrate Negative (Negative) Urine Bilirubin Negative (Negative) Urine Urobilinogen 0.2 (<2.0) mg/dL Leukocyte Esterase Rfl Negative (Negative) MARICEL/UL Influenza A (RT-PCR) Negative (Negative) Influenza B (RT-PCR) Negative (Negative) RSV (RT-PCR) Negative (Negative) SARS-CoV-2 RNA (RT-PCR) Negative (Negative) Discharge Plan Discharge Clinical Impression: Headache Patient Disposition: Home, Self-Care Condition: Stable Instructions: Antibiotic Form, Acute Headache (DC) Additional Instructions: You were seen in the emergency department for headache. Your workup here including CT of your brain laboratory studies were all within normal limits. Please take Tylenol for your headaches when they occur. Follow up with primary care physician for further management. Patient Language: Frisian Prescriptions: No Action atorvastatin 20 mg tablet aspirin 81 mg tablet,delayed release (DR/EC) hydrochlorothiazide 12.5 mg tablet lisinopril 20 mg tablet 20 mg PO DAILY amoxicillin-pot clavulanate 875-125 mg tablet 1 tablet PO Q12H Qty: 8 0RF Follow-up/Referrals: Yogesh,MD Sincere [Primary Care Provider] -
== END 2024-06-07 19:26 | disposition home or self-care (01) ==
PROVIDERS: Registered Nurse; Emergency Provider Emergency Medicine; PCP Family Medicine
DX: R51.9 Headache, unspecified (principal); Z79.82 Long term (current) use of aspirin; I10 Essential (primary) hypertension; Z87.891 Personal history of nicotine dependence; Z20.822 Contact with and (suspected) exposure to COVID-19; M25.551 Pain in right hip
CPT/HCPCS: 36415; 70450; 71046; 73502; 80053; 81003; 84443; 84484; 85025; 85610; 85730; 87637; 93005; 96361; 96374; 96375; 99284; A9270; J0780; J1200; J1885; J7030